=== PATIENT | female | born 1970 | race Caucasian/White ===

== ENCOUNTER 2018-04-27 13:56 | Emergency (ER) | payer BC, SELFPAY ==
[2018-04-27 14:04] VITALS: BP 147/85; PULSE 76; RESP 18; TEMP 35.9; O2SAT 95
--- NOTE | 2018-04-27 14:16 | DI.CT_ITS ---
SYMPTOMS/DIAGNOSIS: LEFT FLANK PAIN, ? STONE ABDOMINAL CT: A noncontrast enhanced renal colic CT was performed according to the usual protocol. There is no acute abnormality involving the lung bases. The liver is intact. The gallbladder is normal. There are no stones. There is no evidence of pericholecystic fluid. There is no evidence of ductal dilatation. The pancreas is intact. Bilateral renal calculi are demonstrated and there is an apparent 3 mm calculus impacted in the proximal left ureter with mild to moderate resultant left hydronephrosis. There is no evidence of right hydronephrosis. The adrenals are normal. The right ureter as visualized is unremarkable. The bladder is decompressed. There is no evidence of bowel obstruction. There is nothing to suggest intraabdominal free air or free fluid. There is no evidence of an abdominal or pelvic mass or adenopathy. The reproductive organs as visualized appear intact. SUMMARY: Bilateral nephrolithiasis. A 3 mm calculus is noted in the proximal left ureter with resultant mild to moderate left hydronephrosis.
[2018-04-27] MEDS: Ketorolac 30 MG/ML VIAL IVP (14:24)
[2018-04-27] MEDS: Normal Saline Flush 10 ML SYR IVP ×3 (14:25→16:58)
[2018-04-27] MEDS: Normal Saline 1,000 ML 1000 ML IV (14:26)
[2018-04-27] MEDS: Ondansetron 4 MG/2 ML VIAL IVP (14:27)
[2018-04-27 14:44] LABS: Abs Immature Grans 0.03 k/cumm (0.0-0.09); Absolute Basophil Count 0.03 k/cumm (0.0-0.2); Absolute Eosinophil Count 0.22 k/cumm (0.0-0.7); Absolute Lymphocyte Count 1.85 k/cumm (1.2-3.4); Absolute Monocyte Count 0.44 k/cumm (0.11-0.7); Absolute Neutrophil Count 5.61 k/cumm (1.2-6.7); Basophils % 0.4; Eosinophils % 2.7; HCT 46.7 % (36.0-46.0); HGB 15.4 g/dL (12.0-15.5); Immature Grans % 0.4; Lymphocytes % 22.6; Mean Corpuscular Hemoglobin 30.3 pg (27.0-33.0); Mean Corpuscular Volume 91.7 fL (80-95); Mean Platelet Volume 11.9 fL (8.0-11.0); Monocytes % 5.4; Neutrophils % 68.5; Platelet Count 242 x1000/uL (130-400); RBC 5.09 m/cumm (4.00-5.20); RBC Distribution Width 13.3 % (11.7-14.6); White Blood Cell Count 8.18 k/cumm (4.4-10.8)
[2018-04-27 14:51] LABS: Anion Gap 11.9 mmol/L (3-11); BUN 19 mg/dL (7-18); CO2 26.1 mmol/L (21.0-32.0); Calcium 10.4 mg/dL (8.5-10.1); Chloride 104 mmol/L (98-107); Estimated GFR 59.69 (mL/min/1.73m2); Glucose 142 mg/dL (70-100); Sodium 142 mmol/L (136-145)
[2018-04-27 15:28] LABS: Bilirubin Negative (Negative); Blood Moderate (Negative); Clarity Cloudy; Glucose Negative (Negative); Ketones Trace mg/dL (Negative); Leukocyte Esterase Negative (Negative); Nitrite Negative (Negative); Specific Gravity >= 1.030 (1.005-1.025); Urobilinogen 0.2 EU/dL (Up TO 0.2)
--- NOTE | 2018-04-27 15:31 | W.ED.GENAD ---
Discharge Plan Disposition Patient Disposition: HOME Condition: Stable Discharge Details Chief Complaint: Abd Prob Clinical Impression: Ureterolithiasis, Vomiting Primary Care Provider: Tasha Dia ED Provider: Mandy Jacob Home Meds and New Rx's Prescriptions: New ondansetron HCl [Zofran] 4 mg tablet 4 mg PO TID PRN (Reason: nausea and vomiting) Qty: 6 RF: 0 tamsulosin [Flomax] 0.4 mg capsule 0.4 mg PO DAILY Qty: 10 RF: 0 oxycodone 5 mg tablet 5 mg PO Q6H PRN (Reason: pain) Qty: 7 RF: 0 Continued omeprazole 20 MG capsule,delayed release(DR/EC) 20 mg PO QAM PRN Qty: 30 RF: 3 ProAir HFA 8.5 GM HFA aerosol inhaler 2 puff Inhalation Q4H PRN Qty: 1 RF: 2 ibuprofen 800 MG tablet 800 mg PO TID MDD 3200 PRNQty: 180 RF: 2 Discharge Instructions Instructions: Kidney Stones (ED), Acute Nausea and Vomiting (ED) Additional Instructions: Drink plenty of fluids and get plenty of rest. You will receive a call from urology regarding a follow-up appointment. Return immediately to the emergency department for any worsening or new concerning symptoms. Referrals: Burt Garcia MD [ [facility] STAFF PHYSICIAN] - Discharge Data Discharge Date/Time-TO BE ENTERED AT DEPARTURE: 04/27/18 17:15 Discharge Physician: Mandy Jacob Medical Decision Making 48-year-old female with a history hyperlipidemia, and amenorrhea who presents with sudden onset of left upper quadrant abdominal pain this morning while eating breakfast. Sent from PCP office for concern for possible kidney stone. ED busy on patient arrival and had IV, fluids, labs and urinalysis ordered in addition to Toradol and Zofran after review of patient's chart/complaint. Upon my evaluation, patient has tenderness to palpation in her right upper quadrant, epigastric region and left upper quadrant. No CVA tenderness. She describes her pain as in the left upper quadrant and left flank. No relief with Toradol or Zofran. Differential diagnosis includes nephrolithiasis, cholelithiasis, cholecystitis, peptic ulcer disease, gastritis. No complaint of chest pain and Will obtain a CT renal colic as well as abdominal ultrasound. Will give a dose of morphine, Compazine and Pepcid and reassess. 1545 --discussed with radiologist -patient has bilateral nonobstructing nephrolithiasis as well as a 3 mm stone in the proximal left ureter with mild left hydronephrosis. We will cancel abdominal ultrasound as it appears the ureterolithiasis is the source of the pain. Labs reviewed - normal wbc and renal function. RBC in urine but no infection. 1630 --patient states pain improved. Remainder of abdominal CT read as negative. Due to patient's complaint on arrival, a troponin and EKG was ordered. EKG not done and I do not think this is necessary at this time. Troponin negative. Patient has no complaint of chest pain or shortness of breath in her left flank and left upper quadrant pain appear due to ureterolithiasis. As patient had no relief with Toradol, will send home with oxycodone, Flomax, Zofran, strainer. Patient instructed to alternate Tylenol and Motrin. Patient placed on urology follow-up list. Patient instructed to return here at any time if worse. Medical Records Medical records reviewed: Yes I reviewed the patient's medical records. Imaging Data Radiologic Study: Radiologist's impression: ABDOMINAL CT: A noncontrast enhanced renal colic CT was performed according to the usual protocol. There is no acute abnormality involving the lung bases. The liver is intact. The gallbladder is normal. There are no stones. There is no evidence of pericholecystic fluid. There is no evidence of ductal dilatation. The pancreas is intact. Bilateral renal calculi are demonstrated and there is an apparent 3 mm calculus impacted in the proximal left ureter with mild to moderate resultant left hydronephrosis. There is no evidence of right hydronephrosis. The adrenals are normal. The right ureter as visualized is unremarkable. The bladder is decompressed. There is no evidence of bowel obstruction. There is nothing to suggest intraabdominal free air or free fluid. There is no evidence of an abdominal or pelvic mass or adenopathy. The reproductive organs as visualized appear intact. SUMMARY: Bilateral nephrolithiasis. A 3 mm calculus is noted in the proximal left ureter with resultant mild to moderate left hydronephrosis. Lab Data Lab results reviewed: Yes I reviewed the patient's lab results. Laboratory Tests Range/Units 04/27/18 04/27/18 04/27/18 14:22 14:22 14:22 WBC (4.4-10.8) k/cumm 8.18 RBC (4.00-5.20) m/cumm 5.09 Hgb (12.0-15.5) g/dL 15.4 Hct (36.0-46.0) % 46.7 H MCV (80-95) fL 91.7 MCH (27.0-33.0) pg 30.3 MCHC (32.0-36.0) g/dL 33.0 RDW (11.7-14.6) % 13.3 Plt Count (130-400) x1000/uL 242 MPV (8.0-11.0) fL 11.9 H Immature Gran % 0.4 Neutrophils % 68.5 Lymphocytes % 22.6 Monocytes % 5.4 Eosinophils % 2.7 Basophils % 0.4 Absolute Neutrophils (1.2-6.7) k/cumm 5.61 Absolute Lymphocytes (1.2-3.4) k/cumm 1.85 Absolute Monocytes (0.11-0.7) k/cumm 0.44 Absolute Eosinophils (0.0-0.7) k/cumm 0.22 Absolute Basophils (0.0-0.2) k/cumm 0.03 Sodium (136-145) mmol/L 142 Potassium (3.5-5.1) mmol/L 4.0 Chloride (98-107) mmol/L 104 Carbon Dioxide (21.0-32.0) mmol/L 26.1 Anion Gap (3-11) mmol/L 11.9 H BUN (7-18) mg/dL 19 H Creatinine (0.55-1.02) mg/dL 1.00 Estimated GFR/1.73 m2 (mL/min/1.73m2) 59.69 Glucose (70-100) mg/dL 142 H Calcium (8.5-10.1) mg/dL 10.4 H Troponin I (0.00-0.06) ng/mL < 0.02 Urine Color (Yellow) Urine Clarity Urine pH (5-8) Ur Specific Wallace (1.005-1.025) Urine Protein (Negative) mg/dL Urine Ketones (Negative) mg/dL Urine Blood (Negative) Urine Nitrite (Negative) Urine Bilirubin (Negative) Urine Urobilinogen (Up TO 0.2) EU/dL Ur Leukocyte Esterase (Negative) Urine RBC (0-2) Urine WBC (0-5) HPF Ur Epithelial Cells (Negative) HPF Urine Crystals (Negative) HPF Urine Bacteria (Negative) HPF Urine Casts (Negative) LPF Urine Mucus (Negative) Urine Other (Negative) Ur Culture Indicated? Urine Glucose (Negative) mg/dL Range/Units 04/27/18 15:16 WBC (4.4-10.8) k/cumm RBC (4.00-5.20) m/cumm Hgb (12.0-15.5) g/dL Hct (36.0-46.0) % MCV (80-95) fL MCH (27.0-33.0) pg MCHC (32.0-36.0) g/dL RDW (11.7-14.6) % Plt Count (130-400) x1000/uL MPV (8.0-11.0) fL Immature Gran % Neutrophils % Lymphocytes % Monocytes % Eosinophils % Basophils % Absolute Neutrophils (1.2-6.7) k/cumm Absolute Lymphocytes (1.2-3.4) k/cumm Absolute Monocytes (0.11-0.7) k/cumm Absolute Eosinophils (0.0-0.7) k/cumm Absolute Basophils (0.0-0.2) k/cumm Sodium (136-145) mmol/L Potassium (3.5-5.1) mmol/L Chloride (98-107) mmol/L Carbon Dioxide (21.0-32.0) mmol/L Anion Gap (3-11) mmol/L BUN (7-18) mg/dL Creatinine (0.55-1.02) mg/dL Estimated GFR/1.73 m2 (mL/min/1.73m2) Glucose (70-100) mg/dL Calcium (8.5-10.1) mg/dL Troponin I (0.00-0.06) ng/mL Urine Color (Yellow) Yellow Urine Clarity Cloudy Urine pH (5-8) 6.0 Ur Specific Wallace (1.005-1.025) >= 1.030 H Urine Protein (Negative) mg/dL Negative Urine Ketones (Negative) mg/dL Trace H Urine Blood (Negative) Moderate H Urine Nitrite (Negative) Negative Urine Bilirubin (Negative) Negative Urine Urobilinogen (Up TO 0.2) EU/dL 0.2 Ur Leukocyte Esterase (Negative) Negative Urine RBC (0-2) 5-10 H Urine WBC (0-5) HPF 0-2 Ur Epithelial Cells (Negative) HPF Rare Urine Crystals (Negative) HPF Negative Urine Bacteria (Negative) HPF Few Urine Casts (Negative) LPF Negative Urine Mucus (Negative) Negative Urine Other (Negative) Negative Ur Culture Indicated? No Urine Glucose (Negative) mg/dL Negative test negative HPI General Mode of arrival: ambulatory. Date/Time Provider Initiated Documentation: 04/27/18 14:09. Limitations to Documentation: no limitations. Information obtained by: patient. HPI Narrative: Patient is a 48-year-old female with a history hyperlipidemia, and amenorrhea who presents with sudden onset of left flank and upper quadrant abdominal pain this morning while eating breakfast. 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 She states she has vomited a few times today. Pt denies any known injury, alleviating or aggravating factors, fever, urinary symptoms, or diarrhea. She has not taken anything for pain. She was seen at the pcp office today for the same complaint and was sent to the ED for concern for possible kidney stone. She denies any known h/o kidney stone or PUD. Related Data Home Medications Medication Instructions Recorded Confirmed ProAir HFA 2 puff INHALATION Q4H PRN #1 08/17/17 04/27/18 inhaler omeprazole 20 mg PO QAM PRN #30 tab-cap 08/17/17 04/27/18 ibuprofen 800 mg PO TID PRN #180 tab-cap MDD 09/14/17 04/27/18 3200 ondansetron HCl [Zofran] 4 mg PO TID PRN #6 tab 04/27/18 oxycodone 5 mg PO Q6H PRN #7 tab 04/27/18 tamsulosin [Flomax] 0.4 mg PO DAILY #10 cap 04/27/18 Previous Rx's Medication Instructions Recorded ProAir HFA 2 puff INHALATION Q4H PRN #1 08/17/17 inhaler omeprazole 20 mg PO QAM PRN #30 tab-cap 08/17/17 ondansetron HCl [Zofran] 4 mg PO TID PRN #6 tab 04/27/18 oxycodone 5 mg PO Q6H PRN #7 tab 04/27/18 tamsulosin [Flomax] 0.4 mg PO DAILY #10 cap 04/27/18 Allergies Allergy/AdvReac Type Severity Reaction Status Date / Time thimerosal Allergy Intermediate Swelling/Ed Unverified 04/27/18 13:14 oj latex Allergy Mild Unverified 04/27/18 13:14 Sulfa (Sulfonamide Allergy Mild SWELLING Unverified 04/27/18 13:14 Antibiotics) Tetanus Vaccines and Toxoid Allergy Mild LOCAL Unverified 04/27/18 13:14 SWELLING venom-honey bee Allergy Unknown Unverified 04/27/18 13:14 pravastatin AdvReac Severe MUSCLE PAIN Unverified 04/27/18 13:14 red yeast rice AdvReac Severe myalgia Unverified 04/27/18 13:14 simvastatin AdvReac Mild MYALGIAS Unverified 04/27/18 13:14 COQ10 AdvReac Severe MYALGIAS Uncoded 04/27/18 13:14 General Stated Complaint: Abd Prob ZEYNEP: 3 Review of Systems Review of Systems All systems reviewed & are unremarkable except as noted in HPI and below Constitutional Reports as per HPI, Denies chills and Denies fever(s) Eyes Denies blurry vision ENT Denies dizziness, Denies sore throat and Denies throat swelling Cardiovascular Denies chest pain and Denies dyspnea Respiratory Denies dyspnea Gastrointestinal Reports abdominal pain, Denies diarrhea and Reports vomiting Genitourinary Denies hematuria and Denies dysuria Musculoskeletal Denies back pain and Denies numbness Integumentary/Breasts Denies lesions and Denies rash Neurologic Denies dizziness and Denies numbness Allergic/Immunologic Denies throat swelling PFSH Medical History Amenorrhea (Inactive) Hyperlipidemia (Chronic) Surgical History Tonsillectomy and adenoidectomy Family History Mother Diabetes Essential hypertension Heart disease Hyperlipidemia Stroke Asthma Father Diabetes Essential hypertension Hyperlipidemia Sister Essential hypertension Hyperlipidemia Neoplasm Asthma Sister Substance abuse Depression Neoplasm Asthma Grandfather Diabetes Grandfather No problems noted. Grandmother Diabetes Essential hypertension Hyperlipidemia Neoplasm Stroke Grandmother Diabetes Brother Substance abuse Asthma Social History Smoking/Tobacco Use Status: Never alcohol intake: never substance use type: does not use Exam Const General: cooperative, healthy appearing and in distress (appears uncomfortable in pain) moderate Nutritional Appearance: obese morbidly obese [facility] Head: normal to inspection Face and sinus: normal facial exam Eyes General: appearance normal, both eyes and all related structures EOM: EOM intact bilaterally Neck Neck: normal visual inspection and No submandibular swelling Lymphatic: no lymphadenopathy noted Chest Chest: normal inspection of the chest and no tenderness Resp Effort & Inspection: normal respiratory effort and able to speak in complete sentences Auscultation: clear to auscultation bilaterally Cardio Rate: regular rate Rhythm: regular rhythm GI Inspection: obesity Palpation: soft, not firm, not rigid and tender (LUQ > epigastric region > RUQ) Auscultation: normal bowel sounds Back/Spine/Pelvis Back: no CVA tenderness and other (no rash noted) Thoracic/Lumbar Spine: thoracic and lumbar spine normal to inspection Skin General skin exam: no rashes or lesions noted Neuro General: alert, awake and oriented x3 Cognition: normal cognition Speech: speech normal Motor: muscle tone normal throughout Sensory Exam: no sensory deficits noted Extrem General: normal to inspection, full ROM and no edema Psych Appearance: grossly normal Mental Status: mental status grossly normal Speech and Movement: speech and movement normal Affect: normal affect Course Vital Signs Temperature 96.6 F L 04/27/18 14:04 Pulse 76 04/27/18 14:04 Respiratory Rate 18 04/27/18 14:04 Blood Pressure 147/85 H 04/27/18 14:04 Pulse Oximetry 95 04/27/18 14:04 Temperature 96.6 F L 04/27/18 14:04 Temperature Source Temporal Artery Scan 04/27/18 14:04 Pulse 76 04/27/18 14:04 Respiratory Rate 18 04/27/18 14:04 Respiratory Effort 04/27/18 14:04 Blood Pressure 147/85 H 04/27/18 14:04 Blood Pressure Position Sitting 04/27/18 14:04 Pulse Oximetry 95 04/27/18 14:04 Oxygen Delivery Method Room Air 04/27/18 14:04 Oxygen Flow Rate 0 04/27/18 14:04 Pain Level 10 04/27/18 14:20 Lab/Test Results Lab/Test Results: Laboratory Tests Range/Units 04/27/18 04/27/18 14:22 14:22 WBC (4.4-10.8) k/cumm 8.18 RBC (4.00-5.20) m/cumm 5.09 Hgb (12.0-15.5) g/dL 15.4 Hct (36.0-46.0) % 46.7 H MCV (80-95) fL 91.7 MCH (27.0-33.0) pg 30.3 MCHC (32.0-36.0) g/dL 33.0 RDW (11.7-14.6) % 13.3 Plt Count (130-400) x1000/uL 242 MPV (8.0-11.0) fL 11.9 H Immature Gran % 0.4 Neutrophils % 68.5 Lymphocytes % 22.6 Monocytes % 5.4 Eosinophils % 2.7 Basophils % 0.4 Absolute Neutrophils (1.2-6.7) k/cumm 5.61 Absolute Lymphocytes (1.2-3.4) k/cumm 1.85 Absolute Monocytes (0.11-0.7) k/cumm 0.44 Absolute Eosinophils (0.0-0.7) k/cumm 0.22 Absolute Basophils (0.0-0.2) k/cumm 0.03 Sodium (136-145) mmol/L 142 Potassium (3.5-5.1) mmol/L 4.0 Chloride (98-107) mmol/L 104 Carbon Dioxide (21.0-32.0) mmol/L 26.1 Anion Gap (3-11) mmol/L 11.9 H BUN (7-18) mg/dL 19 H Creatinine (0.55-1.02) mg/dL 1.00 Estimated GFR/1.73 m2 (mL/min/1.73m2) 59.69 Glucose (70-100) mg/dL 142 H Calcium (8.5-10.1) mg/dL 10.4 H POC- Test(urine) Negative
[2018-04-27] MEDS: Prochlorperazine 10 MG/2 ML VIAL IVP (15:41)
[2018-04-27] MEDS: MORPHine 10 MG/ML VIAL 4 MG IVP (15:44)
[2018-04-27 15:48] LABS: WBC 0-2 HPF (0-5)
[2018-04-27 15:49] LABS: Bacteria Few HPF (Negative); C & S Indicated? No; Casts Negative LPF (Negative); Crystals Negative HPF (Negative); Epithelial Cells Rare HPF (Negative); Mucus Negative (Negative); Other Cells Negative (Negative)
[2018-04-27 16:09] LABS: Troponin I < 0.02 ng/mL (0.00-0.06)
[2018-04-27] MEDS: FAMOTIDINE 20 MG/50 ML BAG 200 MG IVPB (16:43)
[2018-04-27] MEDS: Tamsulosin 0.4 MG CAPCR PO (16:55)
[2018-04-27] MEDS: oxyCODONE 5 MG TAB PO (16:56)
[2018-04-27] MEDS: Ondansetron O.D.T. 4 MG TABEF PO (16:56)
[2018-04-27 16:59] VITALS: BP 147/85; PULSE 76; RESP 18; TEMP 35.9; O2SAT 95
--- NOTE | 2018-04-28 08:02 | PDOC.ERCMPRO ---
Care Management Progress Note 04/28-Dr. Jacob requested assistance with a urology appt in 1-2 weeks for kidney stone, 3 mm stone. Referral faxed to urology office this am.
== END 2018-04-27 17:15 | disposition home or self-care (01) ==
PROVIDERS: Emergency Provider Physician Assistant; PCP Nurse Practitioner Family
DX: N13.2 Hydronephrosis with renal and ureteral calculous obstruction (principal); R11.2 Nausea with vomiting, unspecified
CPT/HCPCS: 36415; 80048; 81025; 96361; 96374; 96375; 99284; 74176; 81003; 81015; 84484; 85025; J0780; J2270

== ENCOUNTER 2018-05-03 11:23 | Outpatient (CLI) | payer BC, SELFPAY ==
[2018-05-03 13:00] LABS: ALT 22 U/L (12-78); AST 14 U/L (15-37); Albumin 3.5 g/dL (3.4-5.0); Alkaline Phosphatase 92 U/L (46-116); Anion Gap 9.6 mmol/L (3-11); BUN 14 mg/dL (7-18); Bilirubin, Total 0.3 mg/dL (0.2-1.0); CO2 28.4 mmol/L (21.0-32.0); CREATININE 0.81 mg/dL (0.55-1.02); Chloride 106 mmol/L (98-107); Glucose 110 mg/dL (70-100); Potassium 4.8 mmol/L (3.5-5.1); Sodium 144 mmol/L (136-145); Total Protein 6.6 g/dL (6.4-8.2)
[2018-05-03 13:47] LABS: Hemoglobin A1C 6.3 % (4.5-6.2)
[2018-05-03 18:24] LABS: Cholesterol 209 mg/dL (50-200); HDL Cholesterol 48 mg/dL (40-60); LDL CHOLESTEROL 140 mg/dL (<100); Triglyceride 98 mg/dL (30-150)
== END 2018-05-03 11:43 ==
PROVIDERS: PCP Nurse Practitioner Family; Visit Provider Nurse Practitioner Family
DX: E78.5 Hyperlipidemia, unspecified (principal); R73.03 Prediabetes; Z00.00 Encounter for general adult medical examination without abnormal findings
CPT/HCPCS: 36415; 80053; 80061; 83721; 83036

== ENCOUNTER 2019-05-10 11:17 | Outpatient (CLI) | payer BC, SELFPAY ==
[2019-05-10 13:47] LABS: Anion Gap 11.3 mmol/L (3-11); BUN 18 mg/dL (7-18); CO2 24.7 mmol/L (21.0-32.0); CREATININE 0.74 mg/dL (0.55-1.02); Calculated LDL 150 mg/dL (<100); Chloride 105 mmol/L (98-107); Cholesterol 228 mg/dL (<200); Glucose 104 mg/dL (74-106); HDL Cholesterol 51 mg/dL (40-60); Potassium 4.5 mmol/L (3.5-5.1); Sodium 141 mmol/L (136-145); Triglyceride 138 mg/dL (<150)
[2019-05-10 13:48] LABS: Hemoglobin A1C 6.2 % (3.8-5.6)
== END 2019-05-10 11:37 ==
PROVIDERS: PCP Nurse Practitioner Family; Visit Provider Nurse Practitioner Family
DX: R73.03 Prediabetes (principal)
CPT/HCPCS: 36415; 80048; 80061; 83036

== ENCOUNTER 2019-06-11 00:43 | Outpatient (CLI) | payer BC, SELFPAY ==
--- NOTE | 2019-06-11 12:15 | DI.MAMMO_ITS ---
EXAM: MG MAMMO SCREENING CLINICAL HISTORY: SCREENING, Z12.39 TECHNIQUE: Bilateral full field digital CC and MLO mammographic images were obtained with 3D tomosyn thesis and utilizing computer aided detection (CAD). COMPARISON: No previous for comparison. FINDINGS: Masses/Architectural Distortion: None seen. Scattered well-circumscribed nodules in the breasts. Microcalcifications: No suspicious pleomorphic-type are seen. Skin Thickening/Nipple Retraction: None. IMPRESSION: 1. No evidence to suggest malignancy at this time. 2. Unless there is more urgent need, screening mammography is recommended, as per [place] [employer] guidelines. BI-RADS Cat 1 - Negative Breast Density - Category B - Scattered areas of fibroglandular density A negative radiographic report should not delay biopsy if a dominant or clinically suspicious mass is present. Up to ten percent of cancers are not identified on mammography. A negative report may reinforce clinical impression. Adenosis and dense breasts may obscure an underlying neoplasm. False positive reports average 6 to 10%. Patient will receive a letter notifying them of these results.
== END 2019-06-11 01:03 ==
PROVIDERS: PCP Nurse Practitioner Family; Visit Provider Nurse Practitioner Family
DX: Z12.31 Encounter for screening mammogram for malignant neoplasm of breast (principal)
CPT/HCPCS: 77063; 77067

== ENCOUNTER 2020-05-15 21:39 | Outpatient (REF) | payer BC, SELFPAY ==
[2020-05-15 22:19] LABS: Anion Gap 6.8 mmol/L (3-11); BUN 13 mg/dL (7-18); CO2 29.2 mmol/L (21.0-32.0); CREATININE 0.8 mg/dL (0.55-1.02); Calcium 10.1 mg/dL (8.5-10.1); Calculated LDL 158 mg/dL (<100); Chloride 105 mmol/L (98-107); Cholesterol 241 mg/dL (<200); Glucose 103 mg/dL (74-106); HDL Cholesterol 56 mg/dL (40-60); Potassium 4.9 mmol/L (3.5-5.1); Sodium 141 mmol/L (136-145); Triglyceride 135 mg/dL (<150)
== END 2020-05-15 21:40 | disposition home or self-care (01) ==
LOC: LBN 21:39
PROVIDERS: PCP Nurse Practitioner Family; Visit Provider Nurse Practitioner Family
DX: R73.03 Prediabetes (principal)
CPT/HCPCS: 80048; 80061; 83036

== ENCOUNTER 2020-06-17 01:21 | Outpatient (CLI) | payer BC, SELFPAY ==
--- NOTE | 2020-06-17 11:21 | DI.MAMMO_ITS ---
EXAM: MAMMO SCREENING CLINICAL HISTORY: screening,Z12.39 TECHNIQUE: Mammograms were interpreted according to the usual protocol including computer analysis w [employer] CAD system, tomosynthesis and C-view imaging. COMPARISON: FINDINGS: The breasts are of moderate density with somewhat asymmetrical appearance of fibroglandular tissue an d possible ductal radiodensities, with increased radiodensity in left breast compared to the right. No dominant mass or clumped microcalcification is identified in either breast. Comparison with previ ous examination of June 2019 shows no significant interval change in appearance in comparison with t he prior study. IMPRESSION: No specific evidence of malignancy this time. Routine screening examinations are suggested yearly in tervals in this age group according to the ACS ACR guidelines. BI-RADS Category 1 - Negative Breast Density - Category B - Scattered areas of fibroglandular density
== END 2020-06-17 01:41 ==
PROVIDERS: PCP Nurse Practitioner Family; Visit Provider Nurse Practitioner Family
DX: Z12.31 Encounter for screening mammogram for malignant neoplasm of breast (principal)
CPT/HCPCS: 77063; 77067

== ENCOUNTER 2021-07-02 02:12 | Outpatient (CLI) | payer BC, SELFPAY ==
--- NOTE | 2021-07-02 12:11 | DI.MAMMO_ITS ---
Exam(s) MAMMO SCREENING EXAM: MAMMO SCREENING CLINICAL HISTORY: screening,Z12.39 TECHNIQUE: Mammograms were interpreted according to the usual protocol including computer analysis w [employer] CAD system, tomosynthesis and C-view imaging. COMPARISON: No 2019 and 2020 FINDINGS: The breasts are composed of scattered fibroglandular densities, Breast Density category B. No suspicious masses or suspicious microcalcifications are seen. No skin thickening or abnormal axillary lymph nodes are seen. There has been no significant change from prior exams. IMPRESSION: BI-RADS Category 1, Negative mammogram Yearly screening mammography is recommended. Breast Density - Category B, scattered fibroglandular densities. A negative radiographic report should not delay biopsy if a dominant or clinically suspicious mass is present. Up to ten percent of cancers are not identified on mammography. A negative report may reinforce clinical impression. Adenosis and dense breasts may obscure an underlying neoplasm. False positive reports average 6 to 10%. Patient will receive a letter notifying them of these results.
== END 2021-07-02 02:32 ==
PROVIDERS: PCP Nurse Practitioner Family; Visit Provider Nurse Practitioner Family
DX: Z12.31 Encounter for screening mammogram for malignant neoplasm of breast (principal)
CPT/HCPCS: 77063; 77067

== ENCOUNTER 2021-12-30 04:59 | Emergency (ER) | payer BC, SELFPAY ==
--- NOTE | 2021-12-30 05:00 | DI.US_ITS ---
Exam(s) US ABDOMEN LIMITED EXAM: US ABDOMEN LIMITED CLINICAL HISTORY: RUQ abdominal pain and tenderness TECHNIQUE: Ultrasound performed using standard protocol. COMPARISON: No exams were available for comparison FINDINGS: Ultrasound examination of the right upper quadrant was performed according to the usual protocol. Th e visualized liver parenchyma is normal in appearance. There is apparent cholelithiasis. No gallbla dder wall thickening or pericholecystic fluid collection seen. However there is a positive sonograph ic Clark sign. Normal diameter of common hepatic duct noted. Unremarkable appearance of pancreas a s visualized. Right kidney unremarkable in appearance. Abdominal aorta and IVC are of normal diamet er. IMPRESSION: Cholelithiasis, there is a positive sonographic Clark sign, please correlate regarding the possibili ty of acute cholecystitis. DATA REPOSITORY:
[2021-12-30 05:05] VITALS: BP 132/73; PULSE 71; RESP 13; TEMP 36.4; O2SAT 98
--- NOTE | 2021-12-30 05:05 | W.ED.GENAD ---
Discharge Plan Disposition Patient Disposition: HOME Condition: Improving Discharge Details Clinical Impression: RUQ abdominal pain, Biliary colic Primary Care Provider: Tasha Dia ED Provider: Carter Padron Home Meds and New Rx's Prescriptions: No Action baclofen 10 mg tablet 10 mg PO TID PRN (Reason: pain) Qty: 90 0RF diclofenac sodium 75 mg tablet,delayed release (DR/EC) 75 mg PO BID PRN (Reason: pain) Qty: 90 0RF epinephrine [EpiPen 2-Esteban] 0.3 mg/0.3 mL auto-injector 0.3 mg IM ONCE PRN (Reason: anaphylaxis) Qty: 2 0RF ibuprofen 800 mg tablet 800 mg PO TID MDD 3200 PRN (Reason: pain) Qty: 180 4RF omeprazole 20 mg capsule,delayed release(DR/EC) 20 mg PO DAILY albuterol sulfate [ProAir HFA] 90 mcg/actuation HFA aerosol inhaler 2 puff Inhalation Q6H PRN (Reason: shortness of breath or wheezing) Qty: 8.5 4RF clotrimazole-betamethasone 1-0.05 % cream 1 applic TP BID PRN (Reason: rash) 28 Days Qty: 45 4RF Rx Instructions: Apply beneath breasts twice a day as needed for rash Discharge Instructions Instructions: Biliary Colic (ED) Additional Instructions: Please follow-up with general surgeon Dr. Casas at 9 AM on January 04; please continue with your pain anti-inflammatory medications at home as well as antinausea medicines as needed. Please return to the emergency department you develop fevers chills sweats nausea vomiting skin color changes worsening abdominal pain or other abnormal symptoms. Referrals: Lori Casas DO [OSTEOPATHIC DOCTOR] - 01/04/22 9:00 am Medical Decision Making <Prashanth Ramirez MD - Last Filed: 12/30/21 06:48> Patient presenting to the ED with persistent right upper quadrant abdominal pain with nausea and a single episode of vomiting. She is exquisitely tender in the right upper quadrant with Clark sign. Concern for acute cholecystitis. IV established and fluids started. Patient made n.p.o. Laboratory studies sent. Patient given morphine and Zofran for symptomatic control. Abdominal ultrasound ordered for first thing this morning. Patient reports improvement in symptoms with less pain and no nausea. Her white count is normal. Her lipase is elevated to 526 but her liver function looks good. Kidney function and chemistry are okay. Urinalysis still pending. Right upper quadrant ultrasound pending. Patient will be signed out to oncoming physician to follow-up on pending studies and disposition as appropriate. Lab Data Lab results reviewed: Yes I reviewed the patient's lab results. <Carter Padron MD - Last Filed: 12/30/21 08:29> Patient presenting to the ED with persistent right upper quadrant abdominal pain with nausea and a single episode of vomiting. She is exquisitely tender in the right upper quadrant with Clark sign. Concern for acute cholecystitis. IV established and fluids started. Patient made n.p.o. Laboratory studies sent. Patient given morphine and Zofran for symptomatic control. Abdominal ultrasound ordered for first thing this morning. Patient reports improvement in symptoms with less pain and no nausea. Her white count is normal. Her lipase is elevated to 526 but her liver function looks good. Kidney function and chemistry are okay. Urinalysis still pending. Right upper quadrant ultrasound pending. Patient will be signed out to oncoming physician to follow-up on pending studies and disposition as appropriate. 8: 24 currently resting comfortably no vomiting. Still with some discomfort right upper quadrant. Evidence of gallstones on ultrasound without gallbladder thickening or pericholecystic fluid. Likely persistent worsening biliary colic over the last several weeks. Given worsening of symptomatology over the last several weeks have discussed case with general surgery, patient will be seen by Dr. Casas at 9 AM on Tuesday. Given home care instructions and strict return precautions for any worsening symptoms. HPI <Prashanth Ramirez MD - Last Filed: 12/30/21 06:48> General Mode of arrival: ambulatory. Date/Time Provider Initiated Documentation: 12/30/21 05:05. Limitations to Documentation: no limitations. Information obtained by: patient and RN notes reviewed. HPI Narrative: Patient presents to ED with persistent right upper quadrant abdominal pain that began last night. It does wax and wane in intensity but does not go away. It is worse with a deep breath or with movement. There is no pain in the back, chest, shoulder area. She has had episodes similar to this which resolved on their own. She had one episode of vomiting at home. She denies fever, cough, shortness of breath, chest pain, diarrhea, urinary symptoms. She has been unable to get comfortable tonight. She has not been able to sleep. Related Data Home Medications Medication Instructions Recorded Confirmed omeprazole 20 mg capsule,delayed 20 mg PO DAILY 05/15/20 12/30/21 release baclofen 10 mg tablet 10 mg PO TID PRN pain #90 tabs 02/02/21 12/30/21 diclofenac sodium 75 mg 75 mg PO BID PRN pain #90 tabs 02/02/21 12/30/21 tablet,delayed release epinephrine 0.3 mg/0.3 mL 0.3 mg (0.3 mL) IM ONCE PRN 02/02/21 12/30/21 injection, auto-injector (EpiPen anaphylaxis #2 ea 2-Esteban) ibuprofen 800 mg tablet 800 mg PO TID PRN pain #180 02/02/21 12/30/21 tab-caps albuterol sulfate 90 mcg/actuation 2 puff inhalation Q6H PRN 05/21/21 12/30/21 aerosol inhaler (ProAir HFA) shortness of breath or wheezing #8.5 grams clotrimazole-betamethasone 1 1 applic topical BID PRN rash 4 05/21/21 12/30/21 %-0.05 % topical cream weeks #45 grams Previous Rx's Medication Instructions Recorded baclofen 10 mg tablet 10 mg PO TID PRN pain #90 tabs 02/02/21 diclofenac sodium 75 mg 75 mg PO BID PRN pain #90 tabs 02/02/21 tablet,delayed release epinephrine 0.3 mg/0.3 mL 0.3 mg (0.3 mL) IM ONCE PRN 02/02/21 injection, auto-injector (EpiPen anaphylaxis #2 ea 2-Esteban) ibuprofen 800 mg tablet 800 mg PO TID PRN pain #180 02/02/21 tab-caps albuterol sulfate 90 mcg/actuation 2 puff inhalation Q6H PRN 05/21/21 aerosol inhaler (ProAir HFA) shortness of breath or wheezing #8.5 grams clotrimazole-betamethasone 1 1 applic topical BID PRN rash 4 05/21/21 %-0.05 % topical cream weeks #45 grams Allergies Allergy/AdvReac Type Severity Reaction Status Date / Time onion Allergy Severe Tingling Verified 12/30/21 05:17 in mouth thimerosal Allergy Intermediate Swelling/Ed Unverified 12/30/21 05:17 oj latex Allergy Mild Unverified 12/30/21 05:17 Sulfa (Sulfonamide Allergy Mild SWELLING Unverified 12/30/21 05:17 Antibiotics) Tetanus Vaccines and Toxoid Allergy Mild LOCAL Unverified 12/30/21 05:17 SWELLING venom-honey bee Allergy Unknown Unverified 12/30/21 05:17 pravastatin AdvReac Severe MUSCLE PAIN Unverified 12/30/21 05:17 red yeast rice AdvReac Severe myalgia Unverified 12/30/21 05:17 simvastatin AdvReac Mild MYALGIAS Unverified 12/30/21 05:17 COQ10 AdvReac Severe MYALGIAS Uncoded 12/30/21 05:17 General ZEYNEP: 3 Review of Systems <Prashanth Ramirez MD - Last Filed: 12/30/21 06:48> Narrative: 01/15 Review of Systems completed and is negative except as stated above in HPI (Systems reviewed: Const, Eyes, ENT, Resp, CV, GI, , MSK, Skin, Neuro) PFSH <Prashanth Ramirez MD - Last Filed: 12/30/21 06:48> All Active Problems (Updated 12/30/21 @ 08:29 by Carter Padron MD) RUQ abdominal pain (Acute) Biliary colic (Acute) Allergic rhinitis (Chronic) Medical History Bilateral nephrolithiasis GERD (gastroesophageal reflux disease) Hyperlipidemia Obesity Prediabetes Surgical History S/P tonsillectomy and adenoidectomy Family History Mother Hypertension Alcohol abuse Depression Heart disease Hyperlipidemia Stroke Type 2 diabetes mellitus Chronic kidney disease Asthma Father , at 50; Didn't know him Hyperlipidemia Hypertension Type 2 diabetes mellitus Sister Hyperlipidemia Asthma Hypertension Cancer of kidney Depression Sister Substance abuse Depression Asthma Cervical cancer Alcohol abuse Hyperlipidemia Hypertension Brother Asthma Substance abuse Alcohol abuse Depression Hyperlipidemia Maternal Grandfather No problems noted. Maternal Grandmother , at 66 Cancer of kidney Hypertension Hyperlipidemia Type 2 diabetes mellitus Stroke Paternal Grandfather No problems noted. Paternal Grandmother No problems noted. Social History Smoking/Tobacco Use Status: Former Tobacco Use tobacco type: cigarettes Quit Date: 02/03/17 Pack-years: 4 Tobacco: How many years used: 6 Second Hand Exposure: Yes Smoking risk assessment performed?: Yes Alcohol Intake: never Drug use: Never Substance use type: does not use Caregiver/Support person: No Household members: significant other Housing: house Communication Needs: None Do you need help understanding health information?: Never Pets and animals: Yes Pets and animals: cat(s), dog(s) and horse(s) Sexually active: Yes Do you think of yourself as: straight/heterosexual Current gender identity: female What is your relationship status?: living with partner How often do you talk on the phone with friends or family?: twice per week How often do you get together with friends or relatives?: never How often do you attend faith or spiritism services?: decline to answer Do you belong to any clubs or organized social groups?: no Panel score (0-1 are the most socially isolated patients): 1 What type of physical activity do you participate in: walking Duration: 30-45 minutes/day Frequency: 3-4 times per week Maryann/Latter-Day: None Special maryann needs: No Seatbelt use: always Helmet use: Yes Helmet use: always Drive intox or ride w/intox escort vehicle driver: No Do you feel safe in your relationship?: Yes History History 0 Para Hx # Term Pregnancies Multiple births Hx # Pregnancies Ectopic pregnancies AB induced Hx Number of Living Children AB spontaneous Exam <Prashanth Ramirez MD - Last Filed: 12/30/21 06:48> Narrative Exam Narrative: Const: Morbidly obese female in NAD. HEENT: NC/AT. Normal facial exam. Eyes: Normal conjunctiva and sclera. Neck: Supple. Trachea midline. Lungs: Normal respiratory effort. Lungs are clear. Cor: RRR without murmur/gallop. Good radial pulses. GI: Soft and ND. Tender in the right upper quadrant with guarding and positive Clark sign. Back: No CVAT Neuro: A+O x 3. Normal speech, mentation, gait. Cranial nerves II - XII grossly intact. No gross motor or sensory deficit. Ext: No C/C/E. Skin: Warm and dry without rash. Sign Out <Prashanth Ramirez MD - Last Filed: 12/30/21 06:48> Sign Out Data: Sign Out Comment: pending U/S, U/A and probable surgical consult Last updated by Prashanth Ramirez MD at 12/30/21 07:42
[2021-12-30] MEDS: Normal Saline 1,000 ML 125 ML IV (05:26)
[2021-12-30 05:27] LABS: Abs Immature Grans 0.03 10^3/uL (0.0-0.06); Absolute Basophil Count 0.06 10^3/uL (0.0-0.2); Absolute Eosinophil Count 0.42 10^3/uL (0.0-0.7); Absolute Lymphocyte Count 3.37 10^3/uL (1.2-3.4); Absolute Monocyte Count 0.64 10^3/uL (0.1-0.8); Absolute Neutrophil Count 3.53 10^3/uL (1.2-6.7); Basophils % 0.7; Eosinophils % 5.2; HCT 41.1 % (36.0-46.0); HGB 13.2 g/dL (11.2-15.7); Immature Grans % 0.4; Lymphocytes % 41.9; MCH 29.1 pg (27.0-33.0); MCHC 32.1 % (32.0-36.0); MCV 91 fL (80-95); MPV 11.2 fL (8.0-11.0); Neutrophils % 43.8; Platelet Count 296 10^3/uL (130-400); RBC 4.54 10^6/uL (3.93-5.22); RDW-SD 42.4 fL; WBC 8.05 10^3/uL (4.4-10.8)
[2021-12-30] MEDS: Ondansetron 4 MG/2 ML VIAL IVP (05:27)
[2021-12-30] MEDS: MORPHine 10 MG/ML VIAL 4 MG IVP (05:28)
[2021-12-30 05:40] LABS: Lipase 526 U/L (73-393)
[2021-12-30 05:44] LABS: ALT 34 U/L (14-59); AST 38 U/L (15-37); Albumin 3.7 g/dL (3.4-5.0); Alkaline Phosphatase 111 U/L (46-116); Anion Gap 6.5 mmol/L (3-11); BUN 19 mg/dL (7-18); Bilirubin, Total 0.4 mg/dL (0.2-1.0); CO2 29.5 mmol/L (21.0-32.0); CREATININE 0.9 mg/dL (0.55-1.02); Calcium 10.8 mg/dL (8.5-10.1); Chloride 104 mmol/L (98-107); Estimated GFR 78.37 (mL/min/1.73m2); Glucose 134 mg/dL (74-106); Potassium 3.8 mmol/L (3.5-5.1); Sodium 140 mmol/L (136-145); Total Protein 7.4 g/dL (6.4-8.2)
[2021-12-30 08:51] VITALS: BP 110/79; PULSE 66; TEMP 36.9; O2SAT 98
--- NOTE | 2021-12-30 09:19 | NUR.NOTE ---
Nursing Note: [facility] for Tue 3 @ 9am. Dr. Johnson spoke with Dr Garcia regarding pt.
== END 2021-12-30 08:55 | disposition home or self-care (01) ==
PROVIDERS: Emergency Medicine; Emergency Provider Emergency Medicine; PCP Nurse Practitioner Family
DX: K80.50 Calculus of bile duct without cholangitis or cholecystitis without obstruction (principal); Z87.891 Personal history of nicotine dependence
CPT/HCPCS: 80053; 83690; 96361; 96374; 96375; 99284; 76705; 83735; 85025; J2270; J2405

== ENCOUNTER 2022-01-22 09:11 | Day surgery (SDC) | payer BC, SELFPAY ==
[2022-01-22] VITALS (11 sets, daily range): BP systolic 118–150; BP diastolic 71–91; PULSE 64–80; RESP 16–33; TEMP 36–36.6; O2SAT 95–98; BMI 54.6
--- NOTE | 2022-01-22 00:26 | ROE_ITS ---
Operative Note Operative Note DATE OF PROCEDURE: 01/22/22 PRE-OP DIAGNOSIS: Chronic cholecystitis POST-OP DIAGNOSIS: same PROCEDURE: Laparoscopic cholecystectomy SURGEON: Daniel Nelson DIRECTOR [facility] NURSING: Scott Avila ANESTHESIA TYPE: General LMA/ETT Refer to Anesthesia Record ESTIMATED BLOOD LOSS: 50 PATHOLOGY: other (Gallbladder) COMPLICATIONS: None Patient was transported to: PACU Patient's condition: stable Indications: I was happy to meet Camille in the office today to talk about cholecystectomy.? She is 51 years old, and was recently seen in the emergency department for right upper quadrant and flank pain associated nausea and vomiting.? These episodes are becoming more frequent, experiencing vomiting most every meal.? Pain is sharp, stabbing, and feels like a wrenching in her right flank.? She denies any fevers or chills.? She denies any change in the character of her bowel habits.? In retrospect, she is experienced symptoms like this several times intermittent throughout her lifetime. Procedure Description: After satisfactory induction of general anesthesia, I prepped and draped the abdomen in usual fashion. Next, I began with a periumbilical incision. I dissected down to the fascia and elevated it with Cullen clamps. I incised it sharply. Next, I passed a 12 mm operating port in the umbilical site. I se cured it to the fascia with 0 Vicryl stitches. I then insufflated the peritoneal cavity. Next I inserted a 5 mm 30 degree scope and examined the underlying viscera. There was no evidence of injury created upon entry. I then placed the patient in some reverse Trendelenburg and left side down positioning. Then, with the assistance of the laparoscope, I used local anesthetic to anesthetize the midepigastric and 2 right upper quadrant port sites. Under the vision of the laparoscope, I passed 3 more 5 mm ports. I then grasped the gallbladder fundus and elevated cephalad. I began by dissecting the gallbladder infundibulum. I worked in a lateral to medial fashion. Once I skeletonized the cystic duct and cystic artery, with a satisfactory critical view of safety, I doubly clipped and divided them. I then used electrocautery to dissect the gallbladder off the gallbladder fossa. I passed the gallbladder into an Endo Catch bag and removed it by way of the umbilical site. I examined the surgical field. It was hemostatic. I then removed the 5 mm ports under the vision of the laparoscope. Finally, I removed the umbilical port site and closed the fascia with Vicryl stitches. Sites were irrigated, and the skin was closed with subcuticular stitches. Bandages were applied, patient was awakened from anesthesia, and transferred to the recovery unit.
--- NOTE | 2022-01-22 00:26 | PDOC.DSDIS_ITS ---
Discharge Plan Disposition Patient Disposition: HOME Condition: Good Discharge Details Reason For Visit: Cholecystectomy Attending Provider: Daniel Nelson Primary Care Provider: aTsha Dia Home Meds and New Rx's Prescriptions: New tramadol 50 mg tablet 50 mg PO Q8H PRN (Reason: pain) Qty: 9 0RF Rx Instructions: Take 1 tablet by mouth as often as 8 hours if needed for severe pain. This medication is addictive, and should be used with caution. Continued baclofen 10 mg tablet 10 mg PO TID PRN (Reason: pain) Qty: 90 0RF diclofenac sodium 75 mg tablet,delayed release (DR/EC) 75 mg PO BID PRN (Reason: pain) Qty: 90 0RF epinephrine [EpiPen 2-Esteban] 0.3 mg/0.3 mL auto-injector 0.3 mg IM ONCE PRN (Reason: anaphylaxis) Qty: 2 0RF ibuprofen 800 mg tablet 800 mg PO TID MDD 3200 PRN (Reason: pain) Qty: 180 4RF omeprazole 20 mg capsule,delayed release(DR/EC) 20 mg PO DAILY albuterol sulfate [ProAir HFA] 90 mcg/actuation HFA aerosol inhaler 2 puff Inhalation Q6H PRN (Reason: shortness of breath or wheezing) Qty: 8.5 4RF clotrimazole-betamethasone 1-0.05 % cream 1 applic TP BID PRN (Reason: rash) 28 Days Qty: 45 4RF Rx Instructions: Apply beneath breasts twice a day as needed for rash ondansetron 8 mg Tablet,Disintegrating 8 mg PO DIRECTED Discharge Instructions Instructions: Laparoscopic Cholecystectomy (GEN) Additional Instructions: 1. Resume all of your medications. 2. Okay to use tylenol and ibuprofen over the counter as needed. 3. Use tramadol as needed for severe pain. 4. Leave bandage in place for 24 hours, then remove. 5. Shower with warm soapy water. Pat dry. Use a bandaid if needed to protect your clothing. 6. No soaking or tub baths until I see you in the office. 7. No heavy lifting until I see you in the office. 8.Call the office (or go directly to the emergency room after hours) if you notice any of the following: Develop chills (warm to touch), or if you have a thermometer and your temperature is above 101 Difficulty breathing or difficultly swallowing Persistent vomiting Any bleeding ? exceeding one tablespoon 6. Call your physician if the site where your intravenous was started becomes red, swollen, painful, and warm to touch. Referrals: Daniel Nelson MD [ [facility] STAFF PHYSICIAN] - (10 to 14 days for routine follow- up) Activity:: No lifting Remove Dressings/Wound Care:: 24 hours Shower/Bathe:: 24 hours Diet:: As Tolerated Discharge Orders Discharge Orders: Discharge Order (Routine); Ordered 01/22/22 Ordered By: Daniel Nelson DS: Diagnosis Discharge Diagnosis (1) Biliary colic: Status: Acute Asessment and Plan: Routine follow-up in my office 10 to 14 days
[2022-01-22] MEDS: Lactated Ringers 1,000 ML 80 ML IV (09:57)
[2022-01-22] MEDS: Acetaminophen 500 MG TAB 1000 MG PO (10:05)
[2022-01-22] MEDS: Celecoxib 200 MG CAP PO (10:06)
[2022-01-22] MEDS: Gabapentin 300 MG CAP 600 MG PO (10:09)
--- NOTE | 2022-01-22 11:04 | ANES.PREOP_ITS ---
General Info Date of Service Date Performed: 01/22/22 Height: 5 ft 3 in Weight: 139.877 kg Body Mass Index (BMI): 54.6 Surgical Procedure: Operation Date: 01/22/22 10:40 Proposed Procedure Side Surgeon p Cholecystectomy Laparoscopic Daniel Nelson MD Meds Allergies and Home Medications Allergies Allergy/AdvReac Type Severity Reaction Status Date / Time onion Allergy Severe Tingling Verified 01/22/22 09:33 in mouth thimerosal Allergy Intermediate Swelling/Ed Unverified 01/22/22 09:33 oj latex Allergy Mild Skin Rash Unverified 01/22/22 09:33 Sulfa (Sulfonamide Allergy Mild SWELLING Unverified 01/22/22 09:33 Antibiotics) Tetanus Vaccines and Toxoid Allergy Mild LOCAL Unverified 01/22/22 09:33 SWELLING venom-honey bee Allergy Unknown Anaphylaxis Unverified 01/22/22 09:33 pravastatin AdvReac Severe MUSCLE PAIN Unverified 01/22/22 09:33 red yeast rice AdvReac Severe myalgia Unverified 01/22/22 09:33 simvastatin AdvReac Mild MYALGIAS Unverified 01/22/22 09:33 COQ10 AdvReac Severe MYALGIAS Uncoded 01/22/22 09:33 Home Medication Medication Instructions Recorded omeprazole 20 mg capsule,delayed 20 mg PO DAILY 05/15/20 release baclofen 10 mg tablet 10 mg PO TID PRN pain #90 tabs 02/02/21 diclofenac sodium 75 mg 75 mg PO BID PRN pain #90 tabs 02/02/21 tablet,delayed release epinephrine 0.3 mg/0.3 mL 0.3 mg (0.3 mL) IM ONCE PRN 02/02/21 injection, auto-injector (EpiPen anaphylaxis #2 ea 2-Esteban) ibuprofen 800 mg tablet 800 mg PO TID PRN pain #180 02/02/21 tab-caps albuterol sulfate 90 mcg/actuation 2 puff inhalation Q6H PRN 05/21/21 aerosol inhaler (ProAir HFA) shortness of breath or wheezing #8.5 grams clotrimazole-betamethasone 1 1 applic topical BID PRN rash 4 05/21/21 %-0.05 % topical cream weeks #45 grams ondansetron 8 mg disintegrating 8 mg PO DIRECTED 01/21/22 tablet Current Visit Medications: Current Medications Generic Name Dose Route Start Last Admin Trade Name Mandeep PRN Reason Stop Dose Admin Acetaminophen 1,000 mg 01/22/22 06:00 01/22/22 10:05 Acetaminophen 500 Mg Tab PO 01/22/22 23:59 1,000 mg PREOP VI Administration Celecoxib 200 mg 01/22/22 06:00 01/22/22 10:06 Celecoxib 200 Mg Cap PO 01/22/22 16:00 200 mg PREOP VI Administration Gabapentin 600 mg 01/22/22 06:00 01/22/22 10:09 Gabapentin 300 Mg Cap PO 01/22/22 23:59 600 mg PREOP VI Administration Ringer's Solution 1,000 mls @ 80 mls/hr 01/22/22 06:00 01/22/22 09:57 IV 01/22/22 23:59 80 mls/hr INFUSION VI Administration Cefazolin Sodium 3 gm/ Sodium 100 mls @ 200 mls/hr 01/22/22 06:00 Chloride IVPB 01/22/22 16:00 PREOP VI Ondansetron HCl 8 mg/ Sodium 54 mls @ 200 mls/hr 01/22/22 00:29 Chloride IVPB Q6H PRN PRN IV Miscellaneous Supplies 1 each 01/22/22 06:00 Iv Access IV 01/22/22 23:59 DIRECTED VI Morphine Sulfate 2 mg 01/22/22 00:29 Morphine 4 Mg/Ml Syr IVP Q1H PRN PRN Oxycodone HCl 5 mg 01/22/22 00:29 Oxycodone 5 Mg Tab PO Q3H PRN PRN Pain Sodium Chloride 0 ml 01/22/22 06:00 Normal Saline Flush 10 Ml Syr IV 01/22/22 16:00 PRN PRN Sodium Chloride 0 ml 01/22/22 06:00 Normal Saline 10 Ml Vial IJ 01/22/22 23:59 DIRECTED PRN Sterile Water 0 ml 01/22/22 06:00 Water,Injection,Sterile 10 Ml Vial IJ 01/22/22 23:59 DIRECTED PRN PFSH Active Problems Active Problems: Problem Status Onset Code RUQ abdominal pain R10.11 Biliary colic K80.50 Allergic rhinitis J30.9 Medical History Medical History Bilateral nephrolithiasis GERD (gastroesophageal reflux disease) Hyperlipidemia Obesity Prediabetes Surgical History Surgical History S/P tonsillectomy and adenoidectomy Tobacco Smoking/Tobacco Use Status: Former Tobacco Use Passive smoking exposure: Yes Second hand exposure: Yes Alcohol Alcohol Intake: never Substance Use Substance use: Never Substance use type: does not use Prental History History 0 Para Hx # Term Pregnancies Multiple births Hx # Pregnancies Ectopic pregnancies AB induced Hx Number of Living Children AB spontaneous Vital Signs and Lab Results Vital Signs Most Recent Vital Signs in EMR: Most Recent Vital Signs Temp Pulse Resp BP Pulse Ox 36.1 C L 70 16 128/86 97 01/22/22 09:34 01/22/22 09:34 01/22/22 09:34 01/22/22 09:34 01/22/22 09:34 Lab Results Blood Type / Crossmatch: No Data to Display Complete Blood Count: White Blood Count 8.05 10^3/uL (4.4-10.8) 12/30/21 05:23 Red Blood Count 4.54 10^6/uL (3.93-5.22) 12/30/21 05:23 Hemoglobin 13.2 g/dL (11.2-15.7) 12/30/21 05:23 Hematocrit 41.1 % (36.0-46.0) 12/30/21 05:23 Platelet Count 296 10^3/uL (130-400) 12/30/21 05:23 Complete Metabolic Panel: Sodium 140 mmol/L (136-145) 12/30/21 05:23 Potassium 3.8 mmol/L (3.5-5.1) 12/30/21 05:23 Chloride 104 mmol/L (98-107) 12/30/21 05:23 Carbon Dioxide 29.5 mmol/L (21.0-32.0) 12/30/21 05:23 BUN 19 mg/dL (7-18) H 12/30/21 05:23 Creatinine 0.9 mg/dL (0.55-1.02) 12/30/21 05:23 Est GFR (CKD-EPI 2020) 78.37 (mL/min/1.73m2) 12/30/21 05:23 Magnesium 2.0 mg/dL (1.8-2.4) 12/30/21 05:23 Calcium 10.8 mg/dL (8.5-10.1) H 12/30/21 05:23 Albumin 3.7 g/dL (3.4-5.0) 12/30/21 05:23 Glucose 134 mg/dL (74-106) H 12/30/21 05:23 Liver Function Panel: Alanine Aminotransferase (ALT/SGPT) 34 U/L (14-59) 12/30/21 05: 23 Aspartate Amino Transf (AST/SGOT) 38 U/L (15-37) H 12/30/21 05: 23 Coagulation Panel: No Data to Display Cardiac Panel: No Data to Display Arterial Blood Gas: No Data to Display Venous Blood Gas: No Data to Display Pancreas Panel: Lipase 526 U/L (73-393) H 12/30/21 05:23 Thyroid Panel: No Data to Display Infectious Disease: No Data to Display Blood Cultures: No Data to Display Toxicology Panel: No Data to Display Panel: No Data to Display Anesthesia Assessment and Plan Anesthesia History Personal History: No History of Anesthesia Complications Family History: No Family History of Anesthesia Complications Exercise Tolerance Exercise Tolerance: Metabolic Equivalents<4 Cardiac & Pulmonary Exam Cardiac Exam: Normal S1/S2 Heart Sounds Pulmonary Exam: Clear Bilateral Breath Sounds Implantable Cardiac Device Does patient have a Pacemaker or an ICD?: No Airway Exam Known Difficult Airway: No Mallampati Class: 2 Mouth Opening: Normal (> 3cm) Thyromental Distance: Less than 3 cm Neck Range of Motion: Full ROM Neck Circumference: Thick Teeth Condition: Normal Dentition ASA Classification ASA Score: ASA 3 Emergency Case?: No NPO Status NPO Status: NPO Clears >2 hours, Solids >8 hours Anesthesia Plan Resuscitation Status: Full Code Anesthesia Technique: General Anesthesia Airway Planned: Endotracheal Tube Monitors Used: Standard Monitors
[2022-01-22] MEDS: Bupivacaine 0.25% Pres-Free 30 ML VIAL (14:10)
--- NOTE | 2022-01-22 14:32 | GB_PTH ---
PATIENT: Kimberly Andrade LOC: [facility] U#:[id number] AGE/SX: 51/F ROOM: RE01/22/[address]: Daniel Nelson MD : 1970 BED: DIS: 01/22/2022 SPEC #: [id number] RECD: 01/22/22 18:46 STATUS: SALIMA RE #: [id number] RAJAT: 01/22/22 14:[address]: Daniel Nelson DEPT: Surgical Specimen RECD BY: Rocio Haynes ENTERED: 01/22/22 18:47 SP TYPE: GB OTHR DR: MEERA Wadsworth Tissues: 1 - GALLBLADDER Procedures: GROSS AND MICRO LEVEL 3 Comments: [id number]
[2022-01-22] MEDS: Normal Saline Flush 10 ML SYR IV (15:38)
[2022-01-22] MEDS: Ondansetron 4 MG/2 ML VIAL IVP (15:38)
[2022-01-22] MEDS: fentaNYL 100 MCG/2 ML VIAL IVP ×2 (15:41→15:48)
[2022-01-22] MEDS: HYDROmorphone 2 MG/ML SYR IVP ×2 (15:57→16:07)
--- NOTE | 2022-01-22 16:00 | RT.EKG_ITS ---
APPROVED REPORT Exam: Resting ECG Reason for Exam: Chest pain Patient Location: O HR:68 bpm ECG Measurements Heart Rate 68 AXIS TN 185 P 12 QRSd 98 QRS 18 QT 390 T 4 QTc 416 Conclusion Sinus rhythm...normal P axis, V-rate 60- 99 Normal Electrocardiogram
--- NOTE | 2022-01-22 16:36 | ANES.PREOP_ITS ---
General Info Date of Service Date Performed: 01/22/22 Height: 5 ft 3 in Weight: 139.877 kg Body Mass Index (BMI): 54.6 Surgical Procedure: Operation Date: 01/22/22 10:40 Proposed Procedure Side Surgeon p Cholecystectomy Laparoscopic Daniel Nelson MD Actual Procedure Side Surgeon p Cholecystectomy Laparoscopic Not Applicable Daniel Nelson MD Pre-Op Diagnosis Post-Op Diagnosis BILIARY COLIC BILIARY COLIC Meds Allergies and Home Medications Allergies Allergy/AdvReac Type Severity Reaction Status Date / Time onion Allergy Severe Tingling Verified 01/22/22 09:33 in mouth thimerosal Allergy Intermediate Swelling/Ed Unverified 01/22/22 09:33 oj latex Allergy Mild Skin Rash Unverified 01/22/22 09:33 Sulfa (Sulfonamide Allergy Mild SWELLING Unverified 01/22/22 09:33 Antibiotics) Tetanus Vaccines and Toxoid Allergy Mild LOCAL Unverified 01/22/22 09:33 SWELLING venom-honey bee Allergy Unknown Anaphylaxis Unverified 01/22/22 09:33 pravastatin AdvReac Severe MUSCLE PAIN Unverified 01/22/22 09:33 red yeast rice AdvReac Severe myalgia Unverified 01/22/22 09:33 simvastatin AdvReac Mild MYALGIAS Unverified 01/22/22 09:33 COQ10 AdvReac Severe MYALGIAS Uncoded 01/22/22 09:33 Home Medication Medication Instructions Recorded omeprazole 20 mg capsule,delayed 20 mg PO DAILY 05/15/20 release baclofen 10 mg tablet 10 mg PO TID PRN pain #90 tabs 02/02/21 diclofenac sodium 75 mg 75 mg PO BID PRN pain #90 tabs 02/02/21 tablet,delayed release epinephrine 0.3 mg/0.3 mL 0.3 mg (0.3 mL) IM ONCE PRN 02/02/21 injection, auto-injector (EpiPen anaphylaxis #2 ea 2-Esteban) ibuprofen 800 mg tablet 800 mg PO TID PRN pain #180 02/02/21 tab-caps albuterol sulfate 90 mcg/actuation 2 puff inhalation Q6H PRN 05/21/21 aerosol inhaler (ProAir HFA) shortness of breath or wheezing #8.5 grams clotrimazole-betamethasone 1 1 applic topical BID PRN rash 4 05/21/21 %-0.05 % topical cream weeks #45 grams ondansetron 8 mg disintegrating 8 mg PO DIRECTED 01/21/22 tablet tramadol 50 mg tablet 50 mg PO Q8H PRN pain #9 tabs 01/22/22 Current Visit Medications: Current Medications Generic Name Dose Route Start Last Admin Trade Name Laronq PRN Reason Stop Dose Admin Acetaminophen 1,000 mg 01/22/22 06:00 01/22/22 10:05 Acetaminophen 500 Mg Tab PO 01/22/22 23:59 1,000 mg PREOP VI Administration Albuterol/Ipratropium 3 ml 01/22/22 15:17 Albuterol/Ipratropium 3 Ml Upd Vial UPD .X 1 DOSE PRN Ephedrine Sulfate 0 mg 01/22/22 15:17 Ephedrine 25 Mg/5 Ml Syringe IVP DIRECTED PRN Fentanyl 0 mcg 01/22/22 15:17 01/22/22 15:48 Fentanyl 100 Mcg/2 Ml Vial IVP 25 mcg DIRECTED PRN Administration Gabapentin 600 mg 01/22/22 06:00 01/22/22 10:09 Gabapentin 300 Mg Cap PO 01/22/22 23:59 600 mg PREOP VI Administration Hydromorphone HCl 0 mg 01/22/22 15:17 01/22/22 16:07 Hydromorphone 2 Mg/Ml Syr IVP 0.2 mg DIRECTED PRN Administration Ringer's Solution 1,000 mls @ 80 mls/hr 01/22/22 06:00 01/22/22 15:04 IV 01/22/22 23:59 80 mls/hr INFUSION VI Infusion Ondansetron HCl 8 mg/ Sodium 54 mls @ 200 mls/hr 01/22/22 00:29 Chloride IVPB Q6H PRN PRN Promethazine HCl 6.25 mg/ 50.25 mls @ 200 mls/hr 01/22/22 15:17 Sodium Chloride IVPB DIRECTED PRN Nausea IV Miscellaneous Supplies 1 each 01/22/22 06:00 Iv Access IV 01/22/22 23:59 DIRECTED VI Morphine Sulfate 2 mg 01/22/22 00:29 Morphine 4 Mg/Ml Syr IVP Q1H PRN PRN Naloxone HCl 0 mg 01/22/22 15:17 Naloxone 0.4 Mg/Ml Vial IVP PRN PRN Ondansetron HCl 4 mg 01/22/22 15:17 01/22/22 15:38 Ondansetron 4 Mg/2 Ml Vial IVP 4 mg .X 1 DOSE PRN Administration Nausea Oxycodone HCl 5 mg 01/22/22 00:29 Oxycodone 5 Mg Tab PO Q3H PRN PRN Pain Sodium Chloride 0 ml 01/22/22 06:00 Normal Saline 10 Ml Vial IJ 01/22/22 23:59 DIRECTED PRN Sterile Water 0 ml 01/22/22 06:00 Water,Injection,Sterile 10 Ml Vial IJ 01/22/22 23:59 DIRECTED PRN PFSH Active Problems Active Problems: Problem Status Onset Code RUQ abdominal pain R10.11 Biliary colic K80.50 Allergic rhinitis J30.9 Medical History Medical History Bilateral nephrolithiasis GERD (gastroesophageal reflux disease) Hyperlipidemia Obesity Prediabetes Surgical History Surgical History S/P tonsillectomy and adenoidectomy Tobacco Smoking/Tobacco Use Status: Former Tobacco Use Passive smoking exposure: Yes Second hand exposure: Yes Alcohol Alcohol Intake: never Substance Use Substance use: Never Substance use type: does not use Prental History History 0 Para Hx # Term Pregnancies Multiple births Hx # Pregnancies Ectopic pregnancies AB induced Hx Number of Living Children AB spontaneous Vital Signs and Lab Results Vital Signs Most Recent Vital Signs in EMR: Most Recent Vital Signs Temp Pulse Resp BP Pulse Ox 36.6 C 69 21 136/75 97 01/22/22 16:30 01/22/22 16:30 01/22/22 16:30 01/22/22 16:30 01/22/22 16:30 Point of Care Results Point of Care Results: POC- Test(urine) Negative 01/22/22 12:54 Lab Results Blood Type / Crossmatch: No Data to Display Complete Blood Count: White Blood Count 8.05 10^3/uL (4.4-10.8) 12/30/21 05:23 Red Blood Count 4.54 10^6/uL (3.93-5.22) 12/30/21 05:23 Hemoglobin 13.2 g/dL (11.2-15.7) 12/30/21 05:23 Hematocrit 41.1 % (36.0-46.0) 12/30/21 05:23 Platelet Count 296 10^3/uL (130-400) 12/30/21 05:23 Complete Metabolic Panel: Sodium 140 mmol/L (136-145) 12/30/21 05:23 Potassium 3.8 mmol/L (3.5-5.1) 12/30/21 05:23 Chloride 104 mmol/L (98-107) 12/30/21 05:23 Carbon Dioxide 29.5 mmol/L (21.0-32.0) 12/30/21 05:23 BUN 19 mg/dL (7-18) H 12/30/21 05:23 Creatinine 0.9 mg/dL (0.55-1.02) 12/30/21 05:23 Est GFR (CKD-EPI 2020) 78.37 (mL/min/1.73m2) 12/30/21 05:23 Magnesium 2.0 mg/dL (1.8-2.4) 12/30/21 05:23 Calcium 10.8 mg/dL (8.5-10.1) H 12/30/21 05:23 Albumin 3.7 g/dL (3.4-5.0) 12/30/21 05:23 Glucose 134 mg/dL (74-106) H 12/30/21 05:23 Liver Function Panel: Alanine Aminotransferase (ALT/SGPT) 34 U/L (14-59) 12/30/21 05: 23 Aspartate Amino Transf (AST/SGOT) 38 U/L (15-37) H 12/30/21 05: 23 Coagulation Panel: No Data to Display Cardiac Panel: No Data to Display Arterial Blood Gas: No Data to Display Venous Blood Gas: No Data to Display Pancreas Panel: Lipase 526 U/L (73-393) H 12/30/21 05:23 Thyroid Panel: No Data to Display Infectious Disease: No Data to Display Blood Cultures: No Data to Display Toxicology Panel: No Data to Display Panel: No Data to Display Anesthesia Assessment and Plan Anesthesia History Personal History: No History of Anesthesia Complications Family History: No Family History of Anesthesia Complications Exercise Tolerance Exercise Tolerance: Metabolic Equivalents<4 Pertinent Negatives Pertinent Negatives: No Symptoms of GERD Cardiac & Pulmonary Exam Cardiac Exam: Normal S1/S2 Heart Sounds Pulmonary Exam: Clear Bilateral Breath Sounds Implantable Cardiac Device Does patient have a Pacemaker or an ICD?: No Airway Exam Known Difficult Airway: No Mallampati Class: 2 Mouth Opening: Normal (> 3cm) Thyromental Distance: Less than 3 cm Neck Range of Motion: Full ROM Neck Circumference: Thick Teeth Condition: Generalized Poor Dentition ASA Classification ASA Score: ASA 3 Emergency Case?: No NPO Status NPO Status: NPO Clears >2 hours, Solids >8 hours Status Status: Not Relevant due to Medical History Anesthesia Plan Resuscitation Status: Full Code Anesthesia Technique: General Anesthesia Airway Planned: Endotracheal Tube Monitors Used: Standard Monitors
[2022-01-22 16:46] LABS: Troponin I < 50 ng/L (<or=60)
--- NOTE | 2022-01-22 17:01 | W.ANESPOSTOP ---
Postoperative Evaluation Date, Time and Location Date Performed: 01/22/22 Time Performed: 17:02 Patient Location: PACU Vital Signs Most Recent Imported Vital Signs: Most Recent Vital Signs Temp Pulse Resp BP Pulse Ox 36.4 C L 72 18 133/85 98 01/22/22 16:55 01/22/22 16:55 01/22/22 16:55 01/22/22 16:55 01/22/22 16:55 Pain Score Most Recent Pain Score: Most Recent Pain Score Pain Level 3 01/22/22 16:55 Assessment Mental Status: Awake (Alert & Oriented to Patient Baseline) Airway and Respiratory Function: Patent airway with normal (patient baseline) respiratory exam Cardiovascular Function: Hemodynamically Stable Hydration Status: Adequately Hydrated Nausea & Vomiting: No Nausea or Vomiting Pain: Pain is tolerable per patient Peripheral Nerve Block: Patient did not receive a nerve block Postoperative Comments:: EKG and troponin ordered. EKG sinus rhythm. Waiting on troponin. Reported pain has now settled below patients right ribs and is no longer parmjit-sternal. Patient is cleared to go home dependent on troponin.
== END 2022-01-22 17:45 | disposition home or self-care (01) ==
PROVIDERS: Nurse Anesthetist, Certified Registered; PCP Nurse Practitioner Family; Visit Provider Surgery
PROC: 0FT44ZZ Resection of Gallbladder, Percutaneous Endoscopic Approach (ICD-10-PCS; CPT 47562; principal; 2022-01-22 10:30)
DX: K80.10 Calculus of gallbladder with chronic cholecystitis without obstruction (principal); K21.9 Gastro-esophageal reflux disease without esophagitis; E66.9 Obesity, unspecified; R73.03 Prediabetes; Z68.43 Body mass index [BMI] 50.0-59.9, adult
CPT/HCPCS: 47562; 36415; 81025; 84484; 88304; 93005; 93010; J1100; J1170; J2250; J2405; J2704; J3010

== ENCOUNTER 2022-05-21 10:16 | Day surgery (SDC) | payer BC, SELFPAY ==
[2022-05-21 10:30] VITALS: BP 123/74; PULSE 59; RESP 18; TEMP 36; O2SAT 96
[2022-05-21] MEDS: Lactated Ringers 1,000 ML 80 ML IV (10:30)
--- NOTE | 2022-05-21 11:21 | W.ANESPRE ---
General Info Date of Service Date Performed: 05/21/22 Height: 5 ft 3 in Weight: 134.6 kg Body Mass Index (BMI): 52.5 Surgical Procedure: Operation Date: 05/21/22 12:20 Proposed Procedure Side Surgeon lorie Nelson MD Meds Allergies and Home Medications Allergies Allergy/AdvReac Type Severity Reaction Status Date / Time onion Allergy Severe Tingling Verified 05/21/22 10:37 in mouth thimerosal Allergy Intermediate Swelling/Ed Unverified 05/21/22 10:37 oj latex Allergy Mild Skin Rash Unverified 05/21/22 10:37 Sulfa (Sulfonamide Allergy Mild SWELLING Unverified 05/21/22 10:37 Antibiotics) Tetanus Vaccines and Toxoid Allergy Mild LOCAL Unverified 05/21/22 10:37 SWELLING venom-honey bee Allergy Unknown Anaphylaxis Unverified 05/21/22 10:37 pravastatin AdvReac Severe MUSCLE PAIN Unverified 05/21/22 10:37 red yeast rice AdvReac Severe myalgia Unverified 05/21/22 10:37 simvastatin AdvReac Mild MYALGIAS Unverified 05/21/22 10:37 COQ10 AdvReac Severe MYALGIAS Uncoded 05/21/22 10:37 Home Medication Medication Instructions Recorded omeprazole 20 mg capsule,delayed 20 mg PO DAILY 05/15/20 release baclofen 10 mg tablet 10 mg PO TID PRN pain #90 tabs 02/02/21 diclofenac sodium 75 mg 75 mg PO BID PRN pain #90 tabs 02/02/21 tablet,delayed release epinephrine 0.3 mg/0.3 mL 0.3 mg (0.3 mL) IM ONCE PRN 02/02/21 injection, auto-injector (EpiPen anaphylaxis #2 ea 2-Esteban) ondansetron 8 mg disintegrating 8 mg PO DIRECTED 01/21/22 tablet albuterol sulfate 90 mcg/actuation 2 puff inhalation Q6H PRN 03/01/22 aerosol inhaler (ProAir HFA) shortness of breath or wheezing #8.5 grams clotrimazole-betamethasone 1 1 applic topical BID PRN rash 4 03/01/22 %-0.05 % topical cream weeks #45 grams ibuprofen 800 mg tablet 800 mg PO TID PRN pain #180 03/01/22 tab-caps bisacodyl 5 mg tablet,delayed 5 mg PO ONCE #4 tabs 05/13/22 release (Dulcolax (bisacodyl)) polyethylene glycol 3350 17 17 g PO ONCE #238 grams 05/13/22 gram/dose oral powder Current Visit Medications: Current Medications Generic Name Dose Route Start Last Admin Trade Name Freq PRN Reason Stop Dose Admin Ringer's Solution 1,000 mls @ 80 mls/hr 05/21/22 06:00 IV 05/21/22 23:59 INFUSION VI IV Miscellaneous Supplies 1 each 05/21/22 06:00 Iv Access IV 05/21/22 23:59 DIRECTED VI Sodium Chloride 0 ml 05/21/22 06:00 Normal Saline Flush 10 Ml Syr IV 05/21/22 23:59 PRN PRN Sodium Chloride 0 ml 05/21/22 06:00 Normal Saline 10 Ml Vial IJ 05/21/22 23:59 DIRECTED PRN Sterile Water 0 ml 05/21/22 06:00 Water,Injection,Sterile 10 Ml Vial IJ 05/21/22 16:00 DIRECTED PRN PFSH Active Problems Active Problems: Problem Status Onset Code Prediabetes R73.03 Obesity E66.9 Hyperlipidemia E78.5 GERD (gastroesophageal reflux disease) K21.9 Allergic rhinitis J30.9 Medical History Medical History Bilateral nephrolithiasis Surgical History Surgical History S/P cholecystectomy (01/22/22) S/P tonsillectomy and adenoidectomy Tobacco Smoking/Tobacco Use Status: Former Tobacco Use Passive smoking exposure: Yes Second hand exposure: Yes Alcohol Alcohol Intake: never Substance Use Substance use: Never Substance use type: does not use Prental History History 0 Para Hx # Term Pregnancies Multiple births Hx # Pregnancies Ectopic pregnancies AB induced Hx Number of Living Children AB spontaneous Vital Signs and Lab Results Vital Signs Most Recent Vital Signs in EMR: Most Recent Vital Signs Temp Pulse Resp BP Pulse Ox 36 C L 59 L 18 123/74 96 05/21/22 10:30 05/21/22 10:30 05/21/22 10:30 05/21/22 10:30 05/21/22 10:30 Lab Results Blood Type / Crossmatch: No Data to Display Complete Blood Count: No Data to Display Complete Metabolic Panel: No Data to Display Liver Function Panel: No Data to Display Coagulation Panel: No Data to Display Cardiac Panel: No Data to Display Arterial Blood Gas: No Data to Display Venous Blood Gas: No Data to Display Pancreas Panel: No Data to Display Thyroid Panel: No Data to Display Infectious Disease: No Data to Display Blood Cultures: No Data to Display Toxicology Panel: No Data to Display Panel: No Data to Display Imaging and Studies Imaging and Studies Study information below may be from another EMR and interpreted by another provider. Please see original notes in EMR for more complete details. EKG Summary: 01/23 Conclusion Sinus rhythm...normal P axis, V-rate 60- 99 Normal Electrocardiogram Anesthesia Assessment and Plan Anesthesia History Personal History: No History of Anesthesia Complications Family History: No Family History of Anesthesia Complications Exercise Tolerance Exercise Tolerance: Metabolic Equivalents<4 Pertinent Negatives Pertinent Negatives: No Symptoms of GERD Cardiac & Pulmonary Exam Cardiac Exam: Normal S1/S2 Heart Sounds and Known Innocent Murmur Pulmonary Exam: Clear Bilateral Breath Sounds Implantable Cardiac Device Does patient have a Pacemaker or an ICD?: No Airway Exam Known Difficult Airway: No Mallampati Class: 2 Mouth Opening: Normal (> 3cm) Thyromental Distance: Less than 3 cm Neck Range of Motion: Full ROM Neck Circumference: Thick Teeth Condition: Generalized Poor Dentition ASA Classification ASA Score: ASA 3 Emergency Case?: No NPO Status NPO Status: NPO Clears >2 hours, Solids >8 hours Status Status: Not Relevant due to Medical History Anesthesia Plan Resuscitation Status: Full Code Anesthesia Technique: General Anesthesia Airway Planned: Natural Airway Monitors Used: Standard Monitors
[2022-05-21 11:53] VITALS: BMI 52.5
[2022-05-21 12:40] VITALS: BP 96/59; PULSE 63; RESP 18; TEMP 36.3; O2SAT 96
--- NOTE | 2022-05-21 12:41 | W.PM.DSUDISC ---
Date of service: 05/21/22 Time of Service: 12:41 Discharge Plan Disposition Patient Disposition: Home Condition: Good Discharge Details Reason For Visit: Screening colonoscopy Attending Provider: Daniel Nelson Primary Care Provider: Tasha Dia Home Meds and New Rx's Prescriptions: Continued baclofen 10 mg tablet 10 mg PO TID PRN (Reason: pain) Qty: 90 0RF diclofenac sodium 75 mg tablet,delayed release (DR/EC) 75 mg PO BID PRN (Reason: pain) Qty: 90 0RF epinephrine [EpiPen 2-Esteban] 0.3 mg/0.3 mL auto-injector 0.3 mg IM ONCE PRN (Reason: anaphylaxis) Qty: 2 0RF omeprazole 20 mg capsule,delayed release(DR/EC) 20 mg PO DAILY albuterol sulfate [ProAir HFA] 90 mcg/actuation HFA aerosol inhaler 2 puff Inhalation Q6H PRN (Reason: shortness of breath or wheezing) Qty: 8.5 4RF clotrimazole-betamethasone 1-0.05 % cream 1 applic TP BID PRN (Reason: rash) 28 Days Qty: 45 2RF Rx Instructions: Apply beneath breasts twice a day as needed for rash ibuprofen 800 mg tablet 800 mg PO TID MDD 3200 PRN (Reason: pain) Qty: 180 2RF ondansetron 8 mg Tablet,Disintegrating 8 mg PO DIRECTED Discontinued bisacodyl [Dulcolax (bisacodyl)] 5 mg tablet,delayed release (DR/EC) 5 mg PO ONCE Qty: 4 0RF Rx Instructions: Take according to provider's instructions for colonoscopy prep. polyethylene glycol 3350 17 gram/dose powder 17 g PO ONCE Qty: 238 0RF Rx Instructions: To be taken as directed by prescriber's office for colonoscopy prep. Discharge Instructions Instructions: Diverticulosis (GEN), Diverticulosis Diet (GEN) Additional Instructions: 1. If tolerated, consume a soft, low fiber diet for 1-2 days. 2[address] Do not drive, drink alcohol, operate machinery, make critical decisions, or do activities that require coordination or balance for 24 hours. 3. Because air was put into your colon during the procedure, expelling air from your rectum (passing gas or farting) is normal. 4. You may not have a bowel movement for 1-3 days because of the colonoscopy prep. This is normal. 5. Go directly to the emergency room if you notice any of the following: Develop chills (warm to touch), or if you have a thermometer and your temperature is above 101 Difficulty breathing or difficultly swallowing Persistent vomiting Severe abdominal pain, other than gas cramps Severe chest pain Black, tarry stools Any bleeding ? exceeding one tablespoon 6. Call your physician if the site where your intravenous was started becomes red, swollen, painful, and warm to touch. 7. Your physician has reviewed your pre-procedure medications. Please continue to take those medications as previously ordered. You will be given specific information/education regarding any changes to your medications before leaving. Activity:: Activity as Tolerated Diet:: As Tolerated Discharge Orders Discharge Orders: Discharge Order (Routine); Ordered 05/21/22 Ordered By: Daniel Nelson DS: Diagnosis Discharge Diagnosis (1) Screening for colorectal cancer: Status: Acute Asessment and Plan: Normal colonoscopy. Mild diverticulosis, but no evidence of polyps or cancers. Follow-up for next colonoscopy in 10 years
--- NOTE | 2022-05-21 12:44 | W.COLOREPORT ---
Date of service: 05/21/22 Time of Service: 12:44 Colonoscopy Report Date of procedure: 05/21/22 Pre-op diagnosis general: Screening colonoscopy Post-op diagnosis procedure note: same Procedure: Colonoscopy Surgeon: Daniel Nelson Anesthesia Type: General:No Airway Estimated blood loss (mL): 0 Pathology: none sent Complications: None Disposition: same day Indications: Mahsa is 52 years old, and here for her first screening colonoscopy as part of routine health maintenance Prep: Miralax/Dulcolax Procedure Start Time: 12:12 Procedure End Time: 12:30 Retraction Time: 13 Findings: Sigmoid diverticulosis Procedure Description: After the induction of monitored anesthetic care, and with the patient in left lateral decubitus position, I began by performing an external anorectal exam.? Perineum and skin were normal, as was the anal verge.? There was no not evidence of external hemorrhoids.? Next, I performed a digital rectal exam.? I did appreciate any abnormal findings.? Next, I advanced a colonoscope into the rectal vault.? I performed retroflexion.? This was normal.? Using insufflation, I then advanced the colonoscope beyond the rectal folds and into the sigmoid colon before advancing towards the cecum.? The quality of the prep was adequate.? There was sigmoid diverticulosis. The scope was noted to be in the cecum by identification of the ileocecal valve and appendiceal orifice.? I then began withdrawing the colonoscope using repeated irrigation as necessary for full evaluation of the colonic mucosa. ?Once the scope was withdrawn to the level of the rectum, great care was taken to examine portions of the rectal folds.? Finally, the scope was withdrawn and the patient was brought to the same-day surgery recovery unit as the anesthetic wore off. ?The findings and instructions were shared with the patient prior to discharge.
--- NOTE | 2022-05-21 12:50 | W.ANESPOSTOP ---
Postoperative Evaluation Date, Time and Location Date Performed: 05/21/22 Time Performed: 12:50 Patient Location: Day Surgery Unit Vital Signs Most Recent Imported Vital Signs: Most Recent Vital Signs Temp Pulse Resp BP Pulse Ox 36.3 C L 63 18 96/59 L 96 05/21/22 12:40 05/21/22 12:40 05/21/22 12:40 05/21/22 12:40 05/21/22 12:40 Pain Score Most Recent Pain Score: Most Recent Pain Score Pain Level 0 05/21/22 12:40 Assessment Mental Status: Awake (Alert & Oriented to Patient Baseline) Airway and Respiratory Function: Patent airway with normal (patient baseline) respiratory exam Cardiovascular Function: Hemodynamically Stable Hydration Status: Adequately Hydrated Nausea & Vomiting: No Nausea or Vomiting Pain: Pt. Denies Any Pain Peripheral Nerve Block: Patient did not receive a nerve block
[2022-05-21 13:40] VITALS: BP 131/80; PULSE 60; RESP 18; TEMP 35.9; O2SAT 97
== END 2022-05-21 14:00 | disposition home or self-care (01) ==
PROVIDERS: PCP Nurse Practitioner Family; Visit Provider Surgery
PROC: 0DJD8ZZ Inspection of Lower Intestinal Tract, Via Natural or Artificial Opening Endoscopic (ICD-10-PCS; CPT 45378; principal; 2022-05-21 12:15)
DX: Z12.11 Encounter for screening for malignant neoplasm of colon (principal); K57.30 Diverticulosis of large intestine without perforation or abscess without bleeding
CPT/HCPCS: 45378

== ENCOUNTER 2022-07-16 01:34 | Outpatient (CLI) | payer BC, SELFPAY ==
[2022-07-16 16:46] LABS: ALT 20 U/L (14-59); AST 15 U/L (15-37); Alkaline Phosphatase 83 U/L (46-116); Amylase 25 U/L (25-115); Anion Gap 7.1 mmol/L (3-11); BUN 12 mg/dL (7-18); CO2 25.9 mmol/L (21.0-32.0); CREATININE 0.8 mg/dL (0.55-1.02); Calcium 10.4 mg/dL (8.5-10.1); Chloride 106 mmol/L (98-107); Estimated GFR 89.71 (mL/min/1.73m2); Glucose 91 mg/dL (74-106); Lipase 13 U/L (16-77); Potassium 4.2 mmol/L (3.5-5.1); Sodium 139 mmol/L (136-145); TSH (W/Ref FT4) 1.25 uIU/mL (0.36-3.74); Total Protein 7.5 g/dL (6.4-8.2)
== END 2022-07-16 01:35 | disposition home or self-care (01) ==
LOC: LBO 01:34
PROVIDERS: PCP Nurse Practitioner Family; Visit Provider Nurse Practitioner Family
DX: R73.03 Prediabetes (principal); F32.89 Other specified depressive episodes; E78.5 Hyperlipidemia, unspecified; Z00.00 Encounter for general adult medical examination without abnormal findings
CPT/HCPCS: 36415; 80053; 83690; 82150; 83036; 84443

== ENCOUNTER 2022-08-20 00:57 | Outpatient (CLI) | payer BC, SELFPAY ==
--- NOTE | 2022-08-20 09:15 | DI.MAMMO_ITS ---
Exam(s) MAMMO SCREENING EXAM: MAMMO SCREENING CLINICAL HISTORY: screening,Z12.39 TECHNIQUE: Bilateral full field digital CC and MLO mammographic images were obtained with 3D tomosyn thesis and utilizing computer aided detection (CAD). COMPARISON: Available for comparison. FINDINGS: Masses/Architectural Distortion: None seen. Microcalcifications: No suspicious pleomorphic-type are seen. Skin Thickening/Nipple Retraction: None. IMPRESSION: 1. No significant interval change with no specific features of malignancy noted. 2. Unless there is more urgent need, screening mammography is recommended, as per [employer] guidelines. BI-RADS Category 1 - Negative Breast Density - Category B - Scattered areas of fibroglandular density Breast density category C or D implies that the patient has dense breast tissue. Dense breast tissue is very common and is not abnormal but dense breast tissue can make it harder to find cancer on a ma mmogram. Also, dense breast tissue may increase their breast cancer risk. This information about the result of the mammogram report was provided to the patient to raise their awareness. Use this report when you speak with the patient about their risks for breast cancer, which includes their family hist ory. At that time, you may recommend for more screening tests (Ultrasound or MRI) as they might be us eful based on their risk. A negative radiographic report should not delay biopsy if a dominant or clinically suspicious mass is present. Up to ten percent of cancers are not identified on mammography. A negative report may reinforce clinical impression. Adenosis and dense breasts may obscure an underlying neoplasm. False positive reports average 6 to 10%. Patient will receive a letter notifying them of these results.
== END 2022-08-20 01:17 ==
LOC: DI 00:57
PROVIDERS: PCP Nurse Practitioner Family; Visit Provider Nurse Practitioner Family
DX: Z12.31 Encounter for screening mammogram for malignant neoplasm of breast (principal)
CPT/HCPCS: 77063; 77067

== ENCOUNTER 2022-11-12 02:41 | Outpatient (CLI) | payer BC, SELFPAY ==
[2022-11-12 16:57] LABS: Anion Gap 8.5 mmol/L (3-11); BUN 11 mg/dL (7-18); CO2 26.5 mmol/L (21.0-32.0); CREATININE 0.9 mg/dL (0.55-1.02); Calcium 10.8 mg/dL (8.5-10.1); Chloride 104 mmol/L (98-107); Estimated GFR 77.88 (mL/min/1.73m2); Glucose 88 mg/dL (74-106); Sodium 139 mmol/L (136-145)
[2022-11-12 17:06] LABS: Hemoglobin A1C 5.3 % (<5.7)
== END 2022-11-12 02:42 | disposition home or self-care (01) ==
PROVIDERS: PCP Nurse Practitioner Family; Visit Provider Nurse Practitioner Family
DX: Z00.00 Encounter for general adult medical examination without abnormal findings (principal); R73.03 Prediabetes; E78.5 Hyperlipidemia, unspecified; K21.9 Gastro-esophageal reflux disease without esophagitis; E66.01 Morbid (severe) obesity due to excess calories
CPT/HCPCS: 36415; 80048; 83036

== ENCOUNTER 2023-03-21 06:56 | Day surgery (SDC) | payer OTHER, SELFPAY ==
--- NOTE | 2023-03-20 15:26 | ANES.PREOP_ITS ---
General Info Date of Service Date Performed: 03/21/23 Height: 5 ft 2 in Weight: 120.202 kg Body Mass Index (BMI): 48.4 Surgical Procedure: Operation Date: 03/21/23 08:20 Proposed Procedure Side Surgeon p Gastroscopy Daniel Nelson MD Meds Allergies and Home Medications Allergies Allergy/AdvReac Type Severity Reaction Status Date / Time onion Allergy Severe Tingling Verified 03/21/23 07:17 in mouth thimerosal Allergy Intermediate Swelling/Ed Unverified 03/21/23 07:17 oj latex Allergy Mild Skin Rash Unverified 03/21/23 07:17 Sulfa (Sulfonamide Allergy Mild SWELLING Unverified 03/21/23 07:17 Antibiotics) Tetanus Vaccines and Toxoid Allergy Mild LOCAL Unverified 03/21/23 07:17 SWELLING venom-honey bee Allergy Unknown Anaphylaxis Unverified 03/21/23 07:17 pravastatin AdvReac Severe MUSCLE PAIN Unverified 03/21/23 07:17 red yeast rice AdvReac Severe myalgia Unverified 03/21/23 07:17 simvastatin AdvReac Mild MYALGIAS Unverified 03/21/23 07:17 semaglutide AdvReac Severe Verified 03/21/23 07:17 Nausea and Vomiting COQ10 AdvReac Severe MYALGIAS Uncoded 03/21/23 07:17 Home Medication Medication Instructions Recorded omeprazole 20 mg capsule,delayed 20 mg PO DAILY 05/15/20 release albuterol sulfate 90 mcg/actuation 2 puff inhalation Q6H PRN 03/01/22 aerosol inhaler (ProAir HFA) shortness of breath or wheezing #8.5 grams clotrimazole-betamethasone 1 1 applic topical BID PRN rash 4 03/01/22 %-0.05 % topical cream weeks #45 grams baclofen 10 mg tablet 10 mg PO TID PRN pain #90 tabs 05/28/22 diclofenac sodium 75 mg 75 mg PO BID PRN pain #90 tabs 05/28/22 tablet,delayed release miconazole nitrate 2 % topical 1 applic topical BID #42.5 grams 05/28/22 cream epinephrine 0.3 mg/0.3 mL 0.3 mg (0.3 mL) IM ONCE PRN 09/02/22 injection, auto-injector (EpiPen anaphylaxis #2 ea 2-Esteban) ibuprofen 800 mg tablet 800 mg PO TID PRN pain #180 09/02/22 tab-caps ondansetron 8 mg disintegrating 8 mg PO TID PRN nausea and 09/02/22 tablet vomiting #90 tabs tirzepatide (weight loss) 2.5 2.5 mg (0.5 mL) subcut QWEEK 4 03/14/23 mg/0.5 mL subcutaneous pen weeks #2 mL injector (Zepbound) Current Visit Medications: Current Medications Generic Name Dose Route Start Last Admin Trade Name Freq PRN Reason Stop Dose Admin Ringer's Solution 1,000 mls @ 80 mls/hr 03/21/23 06:00 IV 04/17/23 23:59 INFUSION [facility] IV Miscellaneous Supplies 1 each 03/21/23 06:00 Iv Access IV 04/17/23 23:59 DIRECTED VI Sodium Chloride 0 ml 03/21/23 06:00 Normal Saline Flush 10 Ml Syr IV 04/17/23 23:59 PRN PRN Sodium Chloride 0 ml 03/21/23 06:00 Normal Saline 10 Ml Vial IJ 04/17/23 23:59 DIRECTED PRN Sterile Water 0 ml 03/21/23 06:00 Water,Injection,Sterile 10 Ml Vial IJ 04/17/23 23:59 DIRECTED PRN PFSH Active Problems Active Problems: Problem Status Onset Code Chronic RUQ pain R10.11, G89.29 Prediabetes R73.03 Hyperlipidemia E78.5 GERD (gastroesophageal reflux disease) K21.9 Allergic rhinitis J30.9 Sigmoid diverticulosis K57.30 Obesity, Class III, BMI 40-49.9 (morbid obesity) E66.01 Medical History Medical History Bilateral nephrolithiasis Surgical History Surgical History H/O colonoscopy S/P cholecystectomy (01/22/22) S/P tonsillectomy and adenoidectomy Tobacco Smoking/Tobacco Use Status: Former Tobacco Use Passive smoking exposure: Yes Second hand exposure: Yes Alcohol Alcohol Intake: never Substance Use Substance use: Never Substance use type: does not use Prental History History 0 Para Hx # Term Pregnancies Multiple births Hx # Pregnancies Ectopic pregnancies AB induced Hx Number of Living Children AB spontaneous Vital Signs and Lab Results Vital Signs Most Recent Vital Signs in EMR: Temp Pulse Resp BP Pulse Ox 36.5 C 72 16 112/87 96 03/21/23 07:22 03/21/23 07:22 03/21/23 07:22 03/21/23 07:22 03/21/23 07:22 Lab Results Blood Type / Crossmatch: No Data to Display Complete Blood Count: No Data to Display Complete Metabolic Panel: No Data to Display Liver Function Panel: No Data to Display Coagulation Panel: No Data to Display Cardiac Panel: No Data to Display Arterial Blood Gas: No Data to Display Venous Blood Gas: No Data to Display Pancreas Panel: No Data to Display Thyroid Panel: No Data to Display Infectious Disease: No Data to Display Blood Cultures: No Data to Display Toxicology Panel: No Data to Display Panel: No Data to Display Imaging and Studies Imaging and Studies Study information below may be from another EMR and interpreted by another provider. Please see original notes in EMR for more complete details. EKG Summary: 01/23 Conclusion Sinus rhythm...normal P axis, V-rate 60- 99 Normal Electrocardiogram Anesthesia Assessment and Plan Anesthesia History Personal History: No History of Anesthesia Complications Family History: No Family History of Anesthesia Complications Exercise Tolerance Exercise Tolerance: Metabolic Equivalents<4 Cardiac & Pulmonary Exam Cardiac Exam: Normal S1/S2 Heart Sounds Pulmonary Exam: Clear Bilateral Breath Sounds Implantable Cardiac Device Does patient have a Pacemaker or an ICD?: No Airway Exam Known Difficult Airway: No Mallampati Class: 2 Mouth Opening: Normal (> 3cm) Thyromental Distance: Less than 3 cm Neck Range of Motion: Full ROM Neck Circumference: Thick Teeth Condition: Generalized Poor Dentition ASA Classification ASA Score: ASA 3 Emergency Case?: No NPO Status NPO Status: NPO Clears >2 hours, Solids >8 hours Status Status: Not Relevant due to Medical History Anesthesia Plan Resuscitation Status: Full Code Anesthesia Technique: General Anesthesia Airway Planned: Natural Airway Monitors Used: Standard Monitors Preoperative Comments:: 53 yo female with RUQ pain for colo. Sig PMHx: RAD (albuterol), GERD (omeprazole), preDM (last A1c 5.3, tirzepatide), former smoker. Previous Anes: - colo, prop, no issues. - lap brian, glide 3 grade 1.
--- NOTE | 2023-03-20 18:08 | W.PM.DSUDISC ---
Date of service: 03/21/23 Time of Service: 08:28 Discharge Plan Disposition Patient Disposition: Home Condition: Good Discharge Details Reason For Visit: diagnostic EGD Attending Provider: Daniel Nelson Primary Care Provider: Tasha Dia Home Meds and New Rx's Prescriptions: New omeprazole 20 mg capsule,delayed release(DR/EC) 20 mg PO BID Qty: 60 2RF Rx Instructions: Take 1 tablet by mouth in the morning, 1 tablet by mouth in the evening. Continued baclofen 10 mg tablet 10 mg PO TID PRN (Reason: pain) Qty: 90 0RF diclofenac sodium 75 mg tablet,delayed release (DR/EC) 75 mg PO BID PRN (Reason: pain) Qty: 90 0RF miconazole nitrate 2 % cream 1 applic topical BID Qty: 42.5 0RF Rx Instructions: Apply to feet twice a day for up to 4 weeks epinephrine [EpiPen 2-Esteban] 0.3 mg/0.3 mL auto-injector 0.3 mg IM ONCE PRN (Reason: anaphylaxis) Qty: 2 0RF Patient Comments: used one year ago ibuprofen 800 mg tablet 800 mg PO TID MDD 3200 PRN (Reason: pain) Qty: 180 2RF ondansetron 8 mg tablet,disintegrating 8 mg PO TID PRN (Reason: nausea and vomiting) Qty: 90 1RF Zepbound 2.5 mg/0.5 mL pen injector 2.5 mg subcut QWEEK 28 Days Qty: 2 0RF Patient Comments: Has not started this RX yet 03/18/23 albuterol sulfate [ProAir HFA] 90 mcg/actuation HFA aerosol inhaler 2 puff Inhalation Q6H PRN (Reason: shortness of breath or wheezing) Qty: 8.5 4RF clotrimazole-betamethasone 1-0.05 % cream 1 applic TP BID PRN (Reason: rash) 28 Days Qty: 45 2RF Rx Instructions: Apply beneath breasts twice a day as needed for rash Discontinued omeprazole 20 mg capsule,delayed release(DR/EC) 20 mg PO DAILY Discharge Instructions Instructions: Peptic Ulcer (GEN), Diet for Stomach Ulcers and Gastritis (GEN) Additional Instructions: Mahsa, we were able to complete your upper endoscopy today without any difficulty. I did see signs of some peptic ulcer disease. You have a little bit of inflammation of the stomach (typically called gastritis, as well as 1 discrete quite small ulcer. I took biopsies of your stomach like we talked about beforehand. Will test them to see if there is any evidence of H. pylori. This is probably the most common cause of the type of ulcer that I see on your endoscopy. If that is the case that you have H. pylori, then we will treat that and see if it improves your symptoms. For now, I would like you to start taking the omeprazole, but I did change the prescription from 1 time per day up to 2 times per day. We will see how that impacts her symptoms. Incidentally, I also found a small abnormality in the upper part of your esophagus. It appears to me to be an esophageal inlet patch. I did perform some biopsies of it. Assuming that it is an esophageal inlet patch, it is not a dangerous problem. Most patients do not need to be treated at all. For patients with symptoms, the general approach is starting a proton pump inhibitor (such as omeprazole). I will reach out once I have the results of all of the biopsies, and we can make a definitive plan on what to do next. If you have any questions in the meantime, please do not hesitate to call. 1. If tolerated, consume a soft, low fiber diet for 1-2 days. 2[address] Do not drive, drink alcohol, operate machinery, make critical decisions, or do activities that require coordination or balance for 24 hours. 3. You may experience a sore throat for 24 to 48 hours. You may use throat lozenges or gargle with warm salt water to relieve the discomfort. 4. Because air was put into your stomach during the procedure, you may experience some belching. 5. Go directly to the emergency room if you notice any of the following: Develop chills (warm to touch), or if you have a thermometer and your temperature is above 101 Difficulty breathing or difficultly swallowing Persistent vomiting Severe abdominal pain, other than gas cramps Severe chest pain Black, tarry stools Any bleeding ? exceeding one tablespoon 6 Call your physician if the site where your intravenous was started becomes red, swollen, painful, and warm to touch. 7. Your physician has reviewed your pre-procedure medications. Please continue to take those medications as previously ordered. You will be given specific information/education regarding any changes to your medications before leaving. Activity:: Activity as Tolerated Diet:: As Tolerated Discharge Orders Discharge Orders: Discharge Order (Routine); Ordered 03/20/23 Ordered By: Daniel Nelson DS: Diagnosis Discharge Diagnosis (1) Chronic RUQ pain: Status: Chronic Asessment and Plan: Follow-up on biopsy results
--- NOTE | 2023-03-20 18:13 | ENDO_ITS ---
Date of service: 03/21/23 Time of Service: 08:37 Endoscopy Report DATE OF PROCEDURE: 03/21/23 PRE-OP DIAGNOSIS: Chronic abdominal pain POST-OP DIAGNOSIS: other (Peptic ulcer disease; esophageal inlet patch) PROCEDURE: EGD with biopsies SURGEON: Daniel Nelson ANESTHESIA TYPE: General:No Airway ESTIMATED BLOOD LOSS: 10 PATHOLOGY: other (Duodenal biopsies, gastric antral and body biopsies, biopsy of stomach ulcer, biopsy of esophageal inlet patch) COMPLICATIONS: None DISPOSITION: same day INDICATIONS: Kimberly is a 53 year old woman with cronic abdominal pain. She is undergoing EGD to tule out peptic ulcer disease and h pylori PROCEDURE START TIME: 08:08 PROCEDURE END TIME: 08:16 FINDINGS: Type I gastric ulcer, mild gastritis, esophageal inlet patch PROCEDURE DESCRIPTION: After the initiation of monitored anesthetic care, and with the assistance of a bite block, I advanced a standard gastroscope through the mouth past the hypopharynx and into the esophagus.? Under the direct vision of the scope, I advanced down the esophagus into the stomach.? The GE junction was totally normal-appearing, with no evidence of abnormalities at the Z-line. This measured approximately 37 cm from the incisors. I advanced the camera down into the stomach and insufflated until the gastric rugae were obliterated. There was some mild gastritis, and a small ulcer just proximal to the incisura angularis. It appeared to be a simple type I gastric ulcer. I performed retroflexion. T here is no evidence of any hiatal hernia. I advanced the camera down into the duodenum. I performed some random biopsies using cold forceps of the duodenum before backing into the stomach again. I also perform random biopsies of the gastric antrum and body to rule out Helicobacter pylori. I was able to biopsy the gastric ulcer as well. There was minimal bleeding here. I then emptied the stomach, and brought the camera off along the length of the esophagus. Approximately 17 cm from the incisors was a small salmon-colored area of mucosa. There was a complementary lesion on the other side. They appeared consistent with esophageal inlet patches. I performed cold biopsies of this. I then removed the camera, and brought the patient back over to the recovery unit.
[2023-03-21 07:22] VITALS: BP 112/87; PULSE 72; RESP 16; TEMP 36.5; O2SAT 96
[2023-03-21 07:32] VITALS: BMI 48.4
[2023-03-21] MEDS: Lactated Ringers 1,000 ML 80 ML IV (07:35)
--- NOTE | 2023-03-21 08:10 | STOM_PTH ---
PATIENT: Kimberly Andrade LOC: [facility] U#:[id number] AGE/SX: 53/F ROOM: RE03/21/[address]: Daniel Nelson MD : 1970 BED: DIS: 03/21/2023 SPEC #: [id number] RECD: 03/21/23 12:53 STATUS: SALIMA RE #: [id number] RAJAT: 03/21/23 08:[address]: Daniel Nelson DEPT: Surgical Specimen RECD BY: Rocio Haynes ENTERED: 03/21/23 12:54 SP TYPE: STOMACH OTHR DR: Tasha Dia, MEERA Tissues: 1 - BIOPSY BOWEL 2 - STOMACH BIOPSY 3 - STOMACH BIOPSY 4 - STOMACH BIOPSY 5 - ESOPHAGUS BIOPSY Procedures: GROSS AND MICRO LEVEL 4 Comments: [id number]
[2023-03-21 08:21] VITALS: BP 100/69; PULSE 76; RESP 18; TEMP 36.1; O2SAT 95
--- NOTE | 2023-03-21 08:35 | W.ANESPOSTOP ---
Postoperative Evaluation Date, Time and Location Date Performed: 03/21/23 Time Performed: 08:35 Patient Location: Day Surgery Unit Vital Signs Most Recent Imported Vital Signs: Most Recent Vital Signs Temp Pulse Resp BP Pulse Ox 36.1 C L 76 18 100/69 95 03/21/23 08:21 03/21/23 08:21 03/21/23 08:21 03/21/23 08:21 03/21/23 08:21 Pain Score Most Recent Pain Score: Most Recent Pain Score Pain Level 0 03/21/23 08:21 Assessment Mental Status: Awake (Alert & Oriented to Patient Baseline) Airway and Respiratory Function: Patent airway with normal (patient baseline) respiratory exam Cardiovascular Function: Hemodynamically Stable Hydration Status: Adequately Hydrated Nausea & Vomiting: No Nausea or Vomiting Pain: Pt. Denies Any Pain Peripheral Nerve Block: Patient did not receive a nerve block
[2023-03-21 08:40] VITALS: BP 107/81; PULSE 62; RESP 18; O2SAT 99
== END 2023-03-21 09:10 | disposition home or self-care (01) ==
LOC: SUR 06:57
PROVIDERS: PCP Nurse Practitioner Family; Visit Provider Surgery
PROC: 0DJ68ZZ Inspection of Stomach, Via Natural or Artificial Opening Endoscopic (ICD-10-PCS; CPT 43235; principal; 2023-03-21 08:15)
DX: R10.11 Right upper quadrant pain (principal); K21.9 Gastro-esophageal reflux disease without esophagitis; K25.9 Gastric ulcer, unspecified as acute or chronic, without hemorrhage or perforation; K22.81 Esophageal polyp
CPT/HCPCS: 43239; 88305; J2704

== ENCOUNTER 2023-03-21 10:18 | Outpatient (REF) | payer OTHER, SELFPAY ==
[2023-03-21 11:41] LABS: Galactose-alpha-1,3 IgE <0.10 kU/L (<0.70)
== END 2023-03-21 10:19 | disposition home or self-care (01) ==
LOC: LBN 10:18
PROVIDERS: PCP Nurse Practitioner Family; Visit Provider Surgery
DX: R10.11 Right upper quadrant pain (principal); G89.29 Other chronic pain
CPT/HCPCS: 86003

== ENCOUNTER 2023-05-21 21:14 | Outpatient (REF) | payer OTHER, SELFPAY ==
[2023-05-21 23:10] LABS: ALT 17 U/L (14-59); AST 13 U/L (15-37); Alkaline Phosphatase 100 U/L (46-116); Anion Gap 10.9 mmol/L (3-11); BUN 11 mg/dL (7-18); Bilirubin, Total 0.8 mg/dL (0.2-1.0); CO2 25.1 mmol/L (21.0-32.0); CREATININE 0.8 mg/dL (0.55-1.02); Calcium 10.8 mg/dL (8.5-10.1); Calculated LDL 118 mg/dL (<100); Chloride 106 mmol/L (98-107); Cholesterol 197 mg/dL (<200); Estimated GFR 89.15 (mL/min/1.73m2); Glucose 80 mg/dL (74-106); HDL Cholesterol 67 mg/dL (40-60); Sodium 142 mmol/L (136-145); Total Protein 7.2 g/dL (6.4-8.2); Triglyceride 61 mg/dL (<150)
[2023-05-23 10:17] LABS: Hepatitis C Ab w Rflx HCV PCR Negative (Negative)
== END 2023-05-21 21:15 | disposition home or self-care (01) ==
LOC: LBN 21:14
PROVIDERS: PCP Nurse Practitioner Family; Visit Provider Nurse Practitioner Family
DX: E66.01 Morbid (severe) obesity due to excess calories (principal); R79.89 Other specified abnormal findings of blood chemistry; Z11.59 Encounter for screening for other viral diseases
CPT/HCPCS: 80053; 80061; 86803

== ENCOUNTER 2023-07-20 10:13 | Outpatient (REF) | payer OTHER, SELFPAY ==
--- NOTE | 2023-07-20 09:15 | PAPFT_PTH ---
PATIENT: Kimberly Andrade LOC: [facility] U#:[id number] AGE/SX: 53/F ROOM: RE07/20/[address]: MEERA Wadsworth : 1970 BED: DIS: 07/20/2023 SPEC #: [id number] RECD: 07/20/23 13:09 STATUS: SALIMA REMichael #: [id number] RAJAT: 07/20/23 09:[address]: Tasha Dia DEPT: [facility] Cytology RECD BY: Rocio Haynes Tissues: 1 - CX/ENDOCX FOR PAP SMEARS Procedures: PAP THIN PREP/[facility] Screening HPV DNA PROBE Comments: [id number]
== END 2023-07-20 10:14 | disposition home or self-care (01) ==
LOC: LBN 10:13
PROVIDERS: PCP Nurse Practitioner Family; Visit Provider Nurse Practitioner Family
DX: Z12.4 Encounter for screening for malignant neoplasm of cervix (principal)
CPT/HCPCS: 88142; 87624

== ENCOUNTER 2023-07-21 21:36 | Outpatient (REF) | payer OTHER, SELFPAY ==
[2023-07-21 22:18] LABS: ALT 30 U/L (14-59); AST 14 U/L (15-37); Albumin 3.8 g/dL (3.4-5.0); Alkaline Phosphatase 91 U/L (46-116); BUN 13 mg/dL (7-18); Bilirubin, Total 0.6 mg/dL (0.2-1.0); CREATININE 1.1 mg/dL (0.55-1.02); Calcium 10.6 mg/dL (8.5-10.1); Chloride 107 mmol/L (98-107); Estimated GFR 60.84 (mL/min/1.73m2); Glucose 89 mg/dL (74-106); Potassium 3.8 mmol/L (3.5-5.1); Sodium 143 mmol/L (136-145)
[2023-07-21 23:54] LABS: Vitamin D 25 Total 35.2 ng/mL (30-100)
[2023-07-22 17:36] LABS: Ionized Calcium 1.35 mmol/L (1.14-1.35)
[2023-07-22 18:11] LABS: Parathyroid Hormone,Intact 118 pg/mL (19-88)
[2023-07-26 16:32] LABS: 1,25-Dihydroxyvitamin D 70 pg/mL (18-78)
== END 2023-07-21 21:37 | disposition home or self-care (01) ==
LOC: LBO 21:36
PROVIDERS: PCP Nurse Practitioner Family; Visit Provider Nurse Practitioner Family
DX: E55.9 Vitamin D deficiency, unspecified (principal); E83.52 Hypercalcemia
CPT/HCPCS: 80053; 82306; 82330; 82652; 83970

== ENCOUNTER → 2023-08-11 00:05 | Outpatient (CLI) | payer OTHER, SELFPAY ==
--- NOTE | 2023-08-11 12:53 | DI.DEXA_ITS ---
Exam(s) XR DEXA BONE DENSITY W/WO HALIMA EXAM: XR DEXA BONE DENSITY W/WO HALIMA CLINICAL HISTORY: assess for osteoporosis,hyperparathyroidism,e21.3 TECHNIQUE: FINDINGS: Lateral Spine Image: Stable appearance of the thoraco lumbar spine. Left hip: Total T-Score: -0.3 Total Z-Score: 0.2 T- and Z-scores: Within normal limits. Lumbar Spine: Total T-Score: -1.8 Total Z-Score: -1.0 T- and Z-scores: Findings are consistent with osteopenia. IMPRESSION: No evidence of osteoporosis.
== END ==
PROVIDERS: PCP Nurse Practitioner Family; Visit Provider Nurse Practitioner Family
DX: Z13.820 Encounter for screening for osteoporosis (principal); E21.3 Hyperparathyroidism, unspecified
CPT/HCPCS: 77080

== ENCOUNTER 2023-08-14 05:15 | Outpatient (REF) | payer OTHER, SELFPAY ==
[2023-08-14 07:58] LABS: Creatinine,Urine 38.54 mg/dL
[2023-08-14 08:23] LABS: Total Volume 2600 ml
[2023-08-15 10:07] LABS: Calcium Urine 13.3 mg/dL (See Note); Calcium Urine 24 hr 346 mg/24hr (100-300); Timed Urine Volume 2600 mL
== END 2023-08-14 05:16 | disposition home or self-care (01) ==
LOC: LBN 05:15
PROVIDERS: PCP Nurse Practitioner Family; Visit Provider Internal Medicine
DX: E21.3 Hyperparathyroidism, unspecified (principal)
CPT/HCPCS: 81050; 82340; 82570

== ENCOUNTER 2023-08-14 05:20 | Outpatient (CLI) | payer OTHER, SELFPAY ==
[2023-08-14 08:13] LABS: Albumin 4.1 g/dL (3.4-5.0); CREATININE 0.9 mg/dL (0.55-1.02); Calcium 10.6 mg/dL (8.5-10.1); PHOSPHORUS 2.8 mg/dL (2.6-4.7); TSH (W/Ref FT4) 3.01 uIU/mL (0.36-3.74)
[2023-08-14 16:06] LABS: Estradiol <12 pg/mL (See Note)
[2023-08-15 09:33] LABS: FSH 5.7 mIU/mL (See Note)
[2023-08-15 09:44] LABS: Parathyroid Hormone,Intact 137 pg/mL (19-88)
== END 2023-08-14 05:21 | disposition home or self-care (01) ==
LOC: LBO 05:20
PROVIDERS: PCP Nurse Practitioner Family; Visit Provider Internal Medicine
DX: E21.3 Hyperparathyroidism, unspecified (principal)
CPT/HCPCS: 36415; 82306; 82040; 82310; 82565; 82670; 83001; 83002; 83970; 84100; 84443

== ENCOUNTER → 2023-08-22 03:52 | Outpatient (CLI) | payer OTHER, SELFPAY | PROVIDERS: PCP Nurse Practitioner Family; Visit Provider Nurse Practitioner Family | DX: Z12.31 Encounter for screening mammogram for malignant neoplasm of breast (principal) | CPT/HCPCS: 77063; 77067 ==

== ENCOUNTER 2023-08-22 11:30 | Outpatient (CLI) | payer OTHER, SELFPAY ==
[2023-08-22 10:12] LABS: Anion Gap 6.3 mmol/L (3-11); BUN 11 mg/dL (7-18); CO2 28.7 mmol/L (21.0-32.0); CREATININE 0.8 mg/dL (0.55-1.02); Calcium 10.3 mg/dL (8.5-10.1); Chloride 108 mmol/L (98-107); Estimated GFR 89.15 (mL/min/1.73m2); FREE T4 0.95 ng/dL (0.76-1.46); Glucose 79 mg/dL (74-106); Sodium 143 mmol/L (136-145); TSH 2.21 uIU/Ml (0.36-3.74)
[2023-08-22 18:50] LABS: Prolactin 5.3 ng/mL (See Note)
[2023-08-23 18:30] LABS: Adrenocorticotropic Hormone, P 24 pg/mL
[2023-08-26 13:04] LABS: IGF-1, LC/MS, S 107 ng/mL (40-217)
== END 2023-08-22 11:31 | disposition home or self-care (01) ==
LOC: LBO 11:33
PROVIDERS: PCP Nurse Practitioner Family; Visit Provider Internal Medicine
DX: R79.89 Other specified abnormal findings of blood chemistry (principal)
CPT/HCPCS: 36415; 80048; 82533; 82024; 84146; 84305; 84439; 84443

== ENCOUNTER 2023-10-22 01:20 | Outpatient (CLI) | payer OTHER, SELFPAY ==
[2023-10-22 02:17] LABS: ALT 23 U/L (14-59); AST 12 U/L (15-37); Albumin 3.9 g/dL (3.4-5.0); Alkaline Phosphatase 91 U/L (46-116); Anion Gap 9.2 mmol/L (3-11); BUN 15 mg/dL (7-18); Bilirubin, Total 0.59 mg/dL (0.2-1.0); CO2 27.8 mmol/L (21.0-32.0); CREATININE 1.2 mg/dL (0.55-1.02); Calcium 10.7 mg/dL (8.5-10.1); Chloride 103 mmol/L (98-107); Glucose 100 mg/dL (74-106); Sodium 140 mmol/L (136-145); Total Protein 7.1 g/dL (6.4-8.2)
[2023-10-24 11:26] LABS: Lyme Ab w Rflx to Lyme Confirm Negative (Negative)
[2023-10-25 12:28] LABS: Anaplasma phagocytophilum Negative (Negative); B. miyamotoi PCR Negative (Negative); Babesia divergens/MO-1 Negative (Negative); Babesia duncani Negative (Negative); Babesia microti Negative (Negative); Ehrlichia chaffeensis Negative (Negative); Ehrlichia ewingii/canis Negative (Negative); Ehrlichia muris eauclairensis Negative (Negative)
== END 2023-10-22 01:21 | disposition home or self-care (01) ==
LOC: LBO 01:22
PROVIDERS: PCP Nurse Practitioner Family; Visit Provider Nurse Practitioner Family
DX: E21.3 Hyperparathyroidism, unspecified (principal)
CPT/HCPCS: 80053; 87798; 86618

== ENCOUNTER 2023-12-31 07:39 | Outpatient (CLI) | payer OTHER, SELFPAY ==
[2024-01-02 09:33] LABS: Parathyroid Hormone,Intact 105 pg/mL (19-88)
== END 2023-12-31 07:40 | disposition home or self-care (01) ==
LOC: LBO 07:44
PROVIDERS: PCP Nurse Practitioner Family; Visit Provider Surgery
DX: Z98.890 Other specified postprocedural states (principal); Z90.89 Acquired absence of other organs
CPT/HCPCS: 36415; 82310; 83970

== ENCOUNTER 2024-02-25 06:40 | Outpatient (CLI) | payer OTHER, SELFPAY ==
[2024-02-27 10:12] LABS: HIV-1/2 Ag & Ab Screen Negative (Negative)
[2024-02-27 11:03] LABS: HBs Antibody, Quant 6.9 mIU/mL (See Note); Hep B Surface Ab Negative (See Note); Hepatitis B Core Antibody Negative (Negative); Hepatitis B Surface Antigen Negative (Negative)
== END 2024-02-25 06:41 | disposition home or self-care (01) ==
LOC: LBO 06:42
PROVIDERS: PCP Nurse Practitioner Family; Visit Provider Nurse Practitioner Family
DX: Z11.59 Encounter for screening for other viral diseases (principal); Z11.4 Encounter for screening for human immunodeficiency virus [HIV]
CPT/HCPCS: 36415; 86704; 86706; 87340; 87389

== ENCOUNTER 2024-07-05 17:28 | Outpatient (REF) | payer SELFPAY ==
[2024-07-05 18:54] LABS: Vitamin D 25 Total 56 ng/mL (30-100)
[2024-07-06 19:18] LABS: HBs Antibody, Quant 3.8 mIU/mL (See Note); Hepatitis B Surface Ab Negative (See Note)
[2024-07-06 19:22] LABS: Parathyroid Hormone,Intact 52.4 pg/mL (19.0-88.0)
== END 2024-07-05 17:29 | disposition home or self-care (01) ==
LOC: LBN 17:28
PROVIDERS: Nurse Practitioner Family; PCP Nurse Practitioner Family; Visit Provider Nurse Practitioner Adult Health
DX: Z02.1 Encounter for pre-employment examination (principal)
CPT/HCPCS: 82306; 86706; 82310; 83970

== ENCOUNTER 2024-07-24 21:55 | Outpatient (REF) | payer OTHER, SELFPAY ==
[2024-07-24 22:27] LABS: ALT 19 U/L (14-59); AST 17 U/L (15-37); Albumin 3.9 g/dL (3.4-5.0); Alkaline Phosphatase 66 U/L (46-116); Anion Gap 4.6 mmol/L (3-11); BUN 15 mg/dL (7-18); Bilirubin, Total 0.6 mg/dL (0.2-1.0); CO2 28.4 mmol/L (21.0-32.0); CREATININE 0.9 mg/dL (0.55-1.02); Calcium 9.1 mg/dL (8.5-10.1); Calculated LDL 102 mg/dL (<100); Chloride 108 mmol/L (98-107); Cholesterol 186 mg/dL (<200); Estimated GFR 76.92 (mL/min/1.73m2); Glucose 80 mg/dL (74-106); HDL Cholesterol 73 mg/dL (>or=50); Sodium 141 mmol/L (136-145); Total Protein 7.2 g/dL (6.4-8.2); Triglyceride 58 mg/dL (<150)
== END 2024-07-24 21:56 | disposition home or self-care (01) ==
LOC: LBN 21:55
PROVIDERS: PCP Nurse Practitioner Family; Visit Provider Nurse Practitioner Family
DX: E78.5 Hyperlipidemia, unspecified (principal)
CPT/HCPCS: 80053; 80061

== ENCOUNTER 2024-08-28 01:36 | Outpatient (CLI) | payer OTHER, SELFPAY ==
--- NOTE | 2024-08-28 07:50 | DI.MAMMO_ITS ---
Exam(s) MAMMO SCREENING EXAM: MAMMO SCREENING CLINICAL HISTORY: screening,z12.39. TECHNIQUE: Bilateral full field digital CC and MLO mammographic images were obtained with 3D tomosyn thesis and utilizing computer aided detection (CAD). COMPARISON: Prior mammograms dating back to 2019 were reviewed. FINDINGS: There has been no significant change in the appearance and distribution of the fibroglandular tissue. Asymmetric densities in the retroareolar region of the left breast are unchanged from least 2019; the refore benign. There are no new spiculated masses nor new malignant appearing microcalcification groups. There is no significant architectural distortion nor skin thickening-retraction. IMPRESSION: No radiographic evidence of malignancy. BI-RADS Category 2 - Benign Findings Breast Density - Category B - There are scattered areas of fibroglandular density. Breast density Category C or D implies that the patient has dense breast tissue. Dense breast tissue can make it harder to find cancer on a mammogram. Dense breast tissue is also associated with an incr eased risk of breast cancer. This information about the result of the mammogram report was provided to the patient to raise their awareness. Use this report when you speak with the patient about their risks for breast cancer, which includes their family history. At that time, you may recommend additional screening tests (Ultrasoun d or MRI) as these tests may add significant information. A negative radiographic report should not delay biopsy if a dominant or clinically suspicious mass is present. Up to ten percent of cancers are not identified on mammography. A negative report may reinforce clinical impression. Adenosis and dense breasts may obscure an underlying neoplasm. False positive reports average 6 to 10%. Patient will receive a letter notifying them of these results.
== END 2024-08-28 01:56 ==
LOC: DI 01:37
PROVIDERS: PCP Nurse Practitioner Family; Visit Provider Nurse Practitioner Family
DX: Z12.31 Encounter for screening mammogram for malignant neoplasm of breast (principal); R92.323 Mammographic fibroglandular density, bilateral breasts; D24.2 Benign neoplasm of left breast
CPT/HCPCS: 77063; 77067

== ENCOUNTER 2025-02-28 18:43 | Emergency (ER) | payer OTHER, SELFPAY ==
[2025-02-28 18:46] VITALS: BP 118/70; PULSE 62; RESP 18; TEMP 36.6; O2SAT 98
--- NOTE | 2025-02-28 19:00 | DI.RAD_ITS ---
Exam(s) XR TIB/FIB LT EXAM: XR TIB/FIB LT CLINICAL HISTORY: Injury Swelling. TECHNIQUE: 2D digital imaging was performed of the left tibia and fibula. Two images were obtained. AP and lateral views were obtained. COMPARISON: No exams were available for comparison FINDINGS: BONES: No acute fracture is present. No bony destructive lesion is seen. Visualized portion of knee and ankle joints are unremarkable. There is an enthesophyte at the posterior calcaneus. There are degenerative changes seen in the knee particularly at the patellofemoral joint. SOFT TISSUE: No radiopaque foreign bodies are seen. There is soft tissue swelling the lower extremity. IMPRESSION: 1. There is no acute fracture or dislocation. 2. Soft tissue swelling of the lower extremity. 3. The preliminary [facility] report was reviewed. DATA REPOSITORY: RADIATION DOSE DELIVERED:
--- NOTE | 2025-02-28 19:04 | ED.GENADUL_ITS ---
Discharge Plan Disposition Patient Disposition: Home Condition: Stable Discharge Details Clinical Impression: Traumatic hematoma of left lower leg Primary Care Provider: Tasha Dia ED Provider: Flakita Rutherford Home Meds and New Rx's Prescriptions: No Action baclofen 10 mg tablet 10 mg PO TID PRN (Reason: pain) Qty: 90 2RF omeprazole 20 mg capsule,delayed release(DR/EC) 20 mg PO BID Qty: 180 2RF diclofenac sodium 75 mg tablet,delayed release (DR/EC) 75 mg PO BID PRN (Reason: pain) Qty: 90 1RF cholecalciferol (vitamin D3) 250 mcg (10,000 unit) capsule 10,000 unit PO DAILY albuterol sulfate [ProAir HFA] 90 mcg/actuation HFA aerosol inhaler 2 puff Inhalation Q6H PRN (Reason: shortness of breath or wheezing) Qty: 8.5 4RF epinephrine [EpiPen 2-Esteban] 0.3 mg/0.3 mL auto-injector 0.3 mg IM ONCE PRN (Reason: anaphylaxis) Qty: 2 2RF Patient Comments: used one year ago Zepbound 15 mg/0.5 mL pen injector 15 mg subcut QWEEK Qty: 6 12RF ibuprofen 800 mg tablet 800 mg PO TID MDD 3200 PRN (Reason: pain) Qty: 180 2RF clotrimazole-betamethasone 1-0.05 % cream 1 applic TP BID PRN (Reason: rash) 28 Days Qty: 45 2RF Rx Instructions: Apply beneath breasts twice a day as needed for rash ondansetron 8 mg tablet,disintegrating 8 mg PO TID PRN (Reason: nausea and vomiting) Qty: 90 1RF Discharge Instructions Instructions: Taking care of bruises Additional Instructions: At this time the x-ray does not show any fractures or broken bones. I do suspect that this is a hematoma and will get better over time. Please wear the Omar wrap, elevate your leg and apply ice 2-3 times a day for the next few days. A outpatient ultrasound was ordered please call on Tuesday to make an appointment. Phone number is [phone] The hours are Tuesday through Tuesday starting at 6 AM, you we have already sent an order to diagnostic imaging and they will know what test to schedule when you call. Please take Tylenol or Ibuprofen with food every 4-6 hours as needed for pain and swelling. Follow up with primary care provider in 3-5 days. Return to ED sooner if any worsening or concerns. Stand Alone Forms: Portal Information Referrals: Tasha Dia NP [Primary Care Provider, Medicine] - 1 week Discharge Orders Other Ambulatory Orders: US lower extremity venous LT (Routine) Timeframe: 1 Week Facility: [facility] - Location: DIAGNOSTIC IMAGING Ordered By: Flakita Rutherford [facility] General Mode of arrival: ambulatory . Date/Time Provider Initiated Documentation: 02/28/25 18:53 . Limitations to Documentation: no limitations . Information obtained by: patient, RN notes reviewed and old records reviewed . HPI Narrative: 54 year old female presents to the ER with cc of left lower leg pain and swelling after getting ran into by her very large 100 pound dog on Tuesday. Notes contusion and hematoma which is painful to the touch. Is able to ambulate with some difficulty on the leg. Does have a history of hyper para thyroiditis, peptic ulcer disease vitamin D deficiency and nephrolithiasis. She is status post parathyroidectomy. Does not take any blood thinners however did take some ibuprofen. Related Data Home Medications ?Medication ?Instructions ?Recorded ?Confirmed albuterol sulfate 90 mcg/actuation 2 puff inhalation Q 6H PRN 04/06/23 02/28/25 aerosol inhaler (ProAir HFA) shortness of breath or wh eezing #8.5 grams cholecalciferol (vitamin D3) 250 10,000 unit PO DAILY 07/20/23 02/28/25 mcg (10,000 unit) capsule Held on 02/28/25. Instructions: Pt Stopped/Never Started epinephrine 0.3 mg/0.3 mL 0.3 mg (0.3 mL) IM ONCE PRN 09/21/23 02/28/25 injection, auto-injector (EpiPen anaphylaxis #2 ea 2-Esteban) baclofen 10 mg tablet 10 mg PO TID PRN pain #90 ta bs 07/20/24 02/28/25 Held on 02/28/25. Instructions: Pt Stopped/Never Started diclofenac sodium 75 mg 75 mg PO BID PRN pain #90 ta bs 07/20/24 02/28/25 tablet,delayed release Held on 02/28/25. Instructions: Pt Stopped/Never Started omeprazole 20 mg capsule,delayed 20 mg PO BID #180 cap s 07/20/24 02/28/25 release Held on 02/28/25. Instructions: Pt Stopped/Never Started tirzepatide (weight loss) 15 15 mg (0.5 mL) subcut QWE EK #6 mL 10/19/24 02/28/25 mg/0.5 mL subcutaneous pen injector (Zepbound) ibuprofen 800 mg tablet 800 mg PO TID PRN pain #180 tabs 12/05/24 02/28/25 clotrimazole-betamethasone 1 1 applic topical BID PRN rash 4 01/21/25 02/28/25 %-0.05 % topical cream weeks #45 grams Held on 02/28/25. Instructions: Pt Stopped/Never Started ondansetron 8 mg disintegrating 8 mg PO TID PRN nausea and 01/23/25 02/28/25 tablet vomiting #90 tabs Held on 02/28/25. Instructions: Pt Stopped/Never Started Previous Rx's ?Medication ?Instructions ?Recorded albuterol sulfate 90 mcg/actuation 2 puff inhalation Q 6H PRN 04/06/23 aerosol inhaler (ProAir HFA) shortness of breath or wh eezing #8.5 grams epinephrine 0.3 mg/0.3 mL 0.3 mg (0.3 mL) IM ONCE PRN 09/21/23 injection, auto-injector (EpiPen anaphylaxis #2 ea 2-Esteban) baclofen 10 mg tablet 10 mg PO TID PRN pain #90 ta bs 07/20/24 Held on 02/28/25. Instructions: Pt Stopped/Never Started diclofenac sodium 75 mg 75 mg PO BID PRN pain #90 ta bs 07/20/24 tablet,delayed release Held on 02/28/25. Instructions: Pt Stopped/Never Started omeprazole 20 mg capsule,delayed 20 mg PO BID #180 cap s 07/20/24 release Held on 02/28/25. Instructions: Pt Stopped/Never Started tirzepatide (weight loss) 15 15 mg (0.5 mL) subcut QWE EK #6 mL 10/19/24 mg/0.5 mL subcutaneous pen injector (Zepbound) ibuprofen 800 mg tablet 800 mg PO TID PRN pain #180 tabs 12/05/24 clotrimazole-betamethasone 1 1 applic topical BID PRN rash 4 01/21/25 %-0.05 % topical cream weeks #45 grams Held on 02/28/25. Instructions: Pt Stopped/Never Started ondansetron 8 mg disintegrating 8 mg PO TID PRN nausea and 01/23/25 tablet vomiting #90 tabs Held on 02/28/25. Instructions: Pt Stopped/Never Started Allergies Allergy/AdvReac Type Severity Reaction Status Date / Time onion Allergy Severe Tingling Verified 02/28/25 18:49 in mouth thimerosal Allergy Intermediate Swelling/Ed Verified 02/28/25 18:49 oj latex Allergy Mild Skin Rash Verified 02/28/25 18:49 Sulfa (Sulfonamide Allergy Mild SWELLING Verified 02/28/25 18:49 Antibiotics) Tetanus Vaccines and Toxoid Allergy Mild LOCAL Verified 02/28/25 18:49 SWELLING venom-honey bee Allergy Unknown Anaphylaxis Verified 02/28/25 18:49 pravastatin AdvReac Severe MUSCLE PAIN Verified 02/28/25 18:49 red yeast rice AdvReac Severe myalgia Verified 02/28/25 18:49 simvastatin AdvReac Mild MYALGIAS Verified 02/28/25 18:49 semaglutide AdvReac Severe Verified 02/28/25 18:49 Nausea and Vomiting COQ10 AdvReac Severe MYALGIAS Uncoded 02/28/25 18:49 General Stated Complaint: Vascular ZEYNEP: 3 Review of Systems Musculoskeletal Musculoskeletal: Reports as per HPI Integumentary/Breasts Skin/Breast: Reports skin pain, Reports skin swelling and Reports wounds (Contusion left lateral anterior blevins) Exam Extrem Left lower extremity: lower leg Details: tenderness, localized swelling and ecchymosis mid lower leg lateral Details: single Upper/lower leg/hip images: 2 1. Contusion and ecchymosis Course Vital Signs Vital signs: Vital Signs Temperature 36.6 C 02/28/25 18:46 Pulse 62 02/28/25 18:46 Respiratory Rate 18 02/28/25 18:46 Blood Pressure 118/70 02/28/25 18:46 Pulse Oximetry 98 02/28/25 18:46 Temperature 36.6 C 02/28/25 18:46 Temperature Source Temporal Artery Scan 02/28/25 18:46 Pulse 62 02/28/25 18:46 Respiratory Rate 18 02/28/25 18:46 Blood Pressure 118/70 02/28/25 18:46 Blood Pressure Position Supine 02/28/25 18:46 Pulse Oximetry 98 02/28/25 18:46 Oxygen Delivery Method Room Air 02/28/25 18:46 Oxygen Flow Rate 0 02/28/25 18:46 Medical Decision Making 54 year old female presents to the ER with cc of left lower leg pain and swelling after getting ran into by her very large 100 pound dog on Tuesday. Notes contusion and hematoma which is painful to the touch. Is able to ambulate with some difficulty on the leg. Does have a history of hyper para thyroiditis, peptic ulcer disease vitamin D deficiency and nephrolithiasis. She is status post parathyroidectomy. Does not take any blood thinners however did take some ibuprofen. X-ray of tib-fib. At this time we do not have ultrasound in house patient is concern for DVT. Outpatient ultrasound ordered, Omar wrap ordered instructed to rest ice compression and elevate leg. This text was generated using KPAation system, please disregard any oddities of phrase or misspellings. Imaging Data Radiologic Study: Imaging: X-Ray Radiologist's impression: Exam: XR Left Tibia and Fibula Exam date and time: 02/28/2025 7:24 PM Age: 54 years old Clinical indication: Injury or trauma; Fall; Other: Tackled by dog TECHNIQUE: Imaging protocol: Radiologic exam of the left tibia and fibula. Views: 2 views. COMPARISON: No relevant prior studies available. FINDINGS: Bones/joints: Two views of the left foreleg reveal no acute fracture or dislocation. There is a well corticated ossification at the distal tip of the fibula, presumably either an accessory ossicle or a sequela of old trauma. Soft tissues: The soft tissues of the foreleg appear swollen and edematous; however, correlation with physical exam is recommended. IMPRESSION: No acute fracture or dislocation seen in the left foreleg. Thank you for allowing us to participate in the care of your patient. Dictated and Authenticated by: Anuj Cortés MD Quality:SDOH Health Related Social Needs: 2 Health related social needs inadequate housing risk of homeless house/econ circumstance lonely/isolated Health related social needs details . 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) HCW, requires post exposure prophylaxis with HBIG Sigmoid diverticulosis (Chronic) Hidradenitis suppurativa (Chronic) Medical History Hyperparathyroidism Peptic ulcer disease Vitamin D deficiency Bilateral nephrolithiasis Surgical History S/P parathyroidectomy (11/29/23) History of esophagogastroduodenoscopy (03/21/23) H/O colonoscopy (05/21/22) S/P cholecystectomy (01/22/22) S/P tonsillectomy and adenoidectomy Family History Mother Heart disease Hyperlipidemia Stroke Type 2 diabetes mellitus Chronic kidney disease Asthma Hypertension Alcohol abuse Depression Father , at 50; Didn't know him Hyperlipidemia Hypertension Type 2 diabetes mellitus Sister Hyperlipidemia Asthma Hypertension Cancer of kidney Depression Sister Substance abuse Depression Asthma Cervical cancer Alcohol abuse Hyperlipidemia Hypertension Brother Asthma Substance abuse Alcohol abuse Depression Hyperlipidemia Maternal Grandfather No problems noted. Maternal Grandmother , at 66 Cancer of kidney Hypertension Hyperlipidemia Type 2 diabetes mellitus Stroke Paternal Grandfather No problems noted. Paternal Grandmother No problems noted. Social History Smoking/Tobacco Use Status: Former Tobacco Use tobacco type: cigarettes Quit Date: 02/03/17 Pack-years: 4 Tobacco: How many years used: 20 Quit status: quit date established Second Hand Exposure: Yes Smoking risk assessment performed?: Yes Alcohol Intake: never Drug use: Never Substance use type: does not use Caregiver/Support person: No Household members: significant other Housing: house Communication Needs: None Do you need help understanding health information?: Never Pets and animals: Yes Pets and animals: cat(s), dog(s) and horse(s) Sexually active: Yes Do you think of yourself as: straight/heterosexual Current gender identity: female What is your relationship status?: living with partner How often do you talk on the phone with friends or family?: twice per week How often do you get together with friends or relatives?: never How often do you attend jehovah's witness or amish services?: decline to answer Do you belong to any clubs or organized social groups?: no Panel score (0-1 are the most socially isolated patients): 1 What type of physical activity do you participate in: walking Duration: 30-45 minutes/day Frequency: 3-4 times per week Maryann/Caodaism: None Special maryann needs: No Seatbelt use: always Helmet use: Yes Helmet use: always Drive intox or ride w/intox warehouse delivery driver: No Do you feel safe at home: Yes Do you feel safe in your relationship?: Yes History History 2 0 Para Hx # Term Pregnancies Multiple births Hx # Pregnancies Ectopic pregnancies AB induced Hx Number of Living Children AB spontaneous
--- NOTE | 2025-02-28 19:31 | DI.VRAD_ITS ---
PROCEDURE INFORMATION: Exam: XR Left Tibia and Fibula Exam date and time: 02/28/2025 7:24 PM Age: 54 years old Clinical indication: Injury or trauma; Fall; Other: Tackled by dog TECHNIQUE: Imaging protocol: Radiologic exam of the left tibia and fibula. Views: 2 views. COMPARISON: No relevant prior studies available. FINDINGS: Bones/joints: Two views of the left foreleg reveal no acute fracture or dislocation. There is a well corticated ossification at the distal tip of the fibula, presumably either an accessory ossicle or a sequela of old trauma. Soft tissues: The soft tissues of the foreleg appear swollen and edematous; however, correlation with physical exam is recommended. IMPRESSION: No acute fracture or dislocation seen in the left foreleg. Dictated and Authenticated by: Anuj Cortés MD. Orderin Sangeeta Boggs MD
== END 2025-02-28 20:05 | disposition home or self-care (01) ==
PROVIDERS: Emergency Provider Registered Nurse Emergency; PCP Nurse Practitioner Family
DX: S80.12XA Contusion of left lower leg, initial encounter (principal); W22.8XXA Striking against or struck by other objects, initial encounter; Z59.811 Housing instability, housed, with risk of homelessness; Z59.89 Other problems related to housing and economic circumstances
CPT/HCPCS: 99283; 73590